=== PATIENT | female | born 1945 | race Caucasian/White ===

== ENCOUNTER 2019-02-15 10:26 | Inpatient (IN) | payer MEDICARE, MEDICAID ==
[~2019-02-15] VITALS: Ht 160 cm; Wt 111.6 kg
--- NOTE | 2019-02-15 10:40 | NUR ---
ED Nurse Note: pt brought in to ER by ambulance from [facility] due to coughing and congestion for last 3 days. pt aao x4 and chairbound at this time. skin clean and intact. pt is not coughing since she arrived to ER but per pt she has been coughing with white and thick phlem. no SOB or wheezing noted at this time. 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
--- NOTE | 2019-02-15 10:50 | NUR ---
ED Nurse Note: x-ray at bedside.
[2019-02-15 11:02] LABS: EOSINOPHILS % (AUTO) 0.1 % (0.0-3.0); HEMATOCRIT 32.6 % (37.0-47.0); HEMOGLOBIN 11.1 G/DL (12.0-16.0); LYMPHOCYTES % (AUTO) 23.9 % (20.0-45.0); MEAN CORPUSCULAR VOLUME 83 FL (80-99); MONOCYTES % (AUTO) 6.4 % (1.0-10.0); NEUTROPHILS % (AUTO) 68.6 % (45.0-75.0); PLATELET COUNT 238 K/UL (150-450); RED BLOOD COUNT 3.93 M/UL (4.20-5.40); RED CELL DISTRIBUTION WIDTH 13.5 % (11.6-14.8); WHITE BLOOD COUNT 7.4 K/UL (4.8-10.8)
[2019-02-15 11:11] VITALS: BP 154/76
[2019-02-15 11:24] LABS: ANION GAP 6 mmol/L (5-15); BLOOD UREA NITROGEN 15 mg/dL (7-18); CARBON DIOXIDE 30 MMOL/L (21-32); CHLORIDE 99 MMOL/L (98-107); CREATININE 1.1 MG/DL (0.55-1.30); POTASSIUM 4.4 MMOL/L (3.5-5.1); SODIUM 134 MMOL/L (136-145)
--- NOTE | 2019-02-15 11:38 | Diagnostic Imaging Report ---
Indication: Cough Comparison: None A single view chest radiograph was obtained. Findings: Cardiomediastinal appearance is within normal limits for age. The lungs are clear. Pulmonary vascularity is appropriate. The diaphragmatic contour is smooth and costophrenic angles are sharp. No pleural effusions are identified. The bones are osteopenic. Impression: No acute findings
[2019-02-15 11:45] LABS: ALANINE AMINOTRANSFERASE 26 U/L (12-78); ALBUMIN 3.1 G/DL (3.4-5.0); ALBUMIN/GLOBULIN RATIO 0.7 (1.0-2.7); ALKALINE PHOSPHATASE 91 U/L (46-116); ASPARTATE AMINO TRANSFERASE 27 U/L (15-37); BILIRUBIN,TOTAL 0.7 MG/DL (0.2-1.0); CKMB 4.6 NG/ML (0.0-3.6)
[2019-02-15] MEDS ORDERED: Azithromycin 500 MG in D5W 275 ML IVPB ONE (11:45)
[2019-02-15] MEDS ORDERED: cefTRIAXone 1 GM in NS 55 ML IVPB ONE (11:45)
--- NOTE | 2019-02-15 12:14 | NUR ---
ED Nurse Note: Report given to BETHANIE Bustamante
--- NOTE | 2019-02-15 12:20 | NUR ---
ED Nurse Note: pt left unit with 1 technical staff assistant in stable condition.
[2019-02-15] MEDS ORDERED: RESTORIL30 MG ORAL (12:23)
[2019-02-15] MEDS ORDERED: FERROUS SULFAT325 M2 ORAL (12:23)
[2019-02-15] MEDS ORDERED: GLUCOPHAGE1000 MG ORAL (12:23)
[2019-02-15] MEDS ORDERED: ATIVAN1 MG ORAL (12:23)
[2019-02-15] MEDS ORDERED: NEURONTIN100 MG ORAL (12:23)
[2019-02-15] MEDS ORDERED: HUMULIN N100 UNIT/1 SUBQ (12:23)
[2019-02-15] MEDS ORDERED: GLUCAGON EMERGEN1 MG IJ (12:23)
[2019-02-15] MEDS ORDERED: CLONIDINE HCL0.1 MG PO (12:23)
[2019-02-15] MEDS ORDERED: LEXAPRO5 MG ORAL (12:23)
[2019-02-15] MEDS ORDERED: ACETAMINOPHEN500 M5 ORAL (12:23)
[2019-02-15] MEDS ORDERED: COZAAR100 MG ORAL (12:23)
[2019-02-15] MEDS ORDERED: NORVASC5 MG ORAL (12:23)
[2019-02-15 12:55] VITALS: BP 146/83
--- NOTE | 2019-02-15 12:55 | NUR ---
NURSE NOTES:ADMITTED FR. ER BY CASSANDRA,C/C OF COUGHING/CONGESTION FOR 3 DAYS,ADMITTING DX.PNEUMONIA,WHOCAME FR.[facility],ER REPORT GIVEN BY JASON KOVACS.PATIENT A/OX3-4,ROOM AIR,VERY PLEASANT,OBESE,SKIN INTACT.ABLE TO AMBULATE.BREATH SOUNDS CLEAR,NO COUGHING OR CONGESTION NOTED.NO C/O PAIN.PLAN OF CARE DISCUSSED AND UNDERSTOOD..
[2019-02-15 13:00] LABS: APPEARANCE,URINE CLEAR; BILIRUBIN, URINE NEGATIVE (NEGATIVE); COLOR,URINE PALE YELLOW; GLUCOSE, URINE (UA) 1+ (NEGATIVE); KETONES,URINE NEGATIVE (NEGATIVE); LEUKOCYTE ESTERASE ,URINE 1+ (NEGATIVE); NITRITE,URINE NEGATIVE (NEGATIVE); PH,URINE 7 (4.5-8.0); PROTEIN,URINE 1+ (NEGATIVE); UROBILINOGEN,URINE NORMAL MG/DL (0.0-1.0)
--- NOTE | 2019-02-15 14:48 | Emergency Room Report ---
History of Present Illness General Chief Complaint: Upper Respiratory Illness Source: Patient, Medical Record, EMS, PMD Present Illness HPI Patient presents emergency department today complaint cough congestion fever. Patient is slightly short of breath as well. Patient is from a longterm. Symptoms noted to be severe. Patient primary care physician is Dr. Garett Gomez. He was concerned that patient might have pneumonia and sent patient here for further evaluation. No other modifying factors. No other associated signs and symptoms. No other complaints were noted. Allergies: Coded Allergies: AMOXICILLIN (Verified Allergy, Unknown, 02/14/10) PENICILLINS (Verified Allergy, Unknown, 02/14/10) Uncoded Allergies: EGGS (Allergy, Unknown, 02/14/10) Patient History Past Medical History: DM, HTN Past Surgical History: none Pertinent Family History: none Social History: Denies: smoking, alcohol use, drug use Now: No Reviewed Nursing Documentation: PMH: Agreed; PSxH: Agreed Nursing Documentation-PMH Past Medical History: No History, Except For Hx Hypertension: Yes Hx Diabetes: Yes Review of Systems All Other Systems: negative except mentioned in HPI Physical Exam Vital Signs Date Time Temp Pulse Resp B/P (MAP) Pulse Ox O2 Delivery O2 Flow Rate FiO2 02/15/19 10:26 98.8 68 18 155/100 (118) 96 Room Air Sp02 EP Interpretation: reviewed, normal General Appearance: normal inspection, well appearing, no apparent distress, alert Head: atraumatic Eyes: bilateral eye normal inspection ENT: normal ENT inspection, hearing grossly normal, normal voice Neck: normal inspection, full range of motion, supple, no bony tend Respiratory: decreased breath sounds, accessory muscle use, crackles - Bases Cardiovascular #1: regular rate, rhythm, no edema Gastrointestinal: normal inspection, normal bowel sounds, non tender, soft, no guarding, no hernia Genitourinary: no CVA tenderness Musculoskeletal: normal inspection, back normal, normal range of motion Neurologic: normal inspection, alert, responsive, speech normal Psychiatric: judgement/insight normal, depressed affect, anxious Skin: normal inspection, normal color, no rash Medical Decision Making Diagnostic Impression: Primary Impression: Pneumonia Additional Impression: Respiratory distress ER Course Patient presents emergency department today complaining of shortness of breath. Differential diagnoses include acute pneumonia, CHF, acute coronary syndrome, pneumothorax, asthma, COPD flare, just to name a few. Given the severity of the patient's presentation I felt this is a highly complex patient. This patient required extensive workup. Patient laboratory work-up was not impressive. Patient however short of breath. Chest x-ray was equivocal and did not show definite pneumonia but given the severity patient's cough congestion fevers at home shortness of breath and immunocompromised status as diabetic felt the patient require admission for further evaluation. Case was discussed in detail with Dr. Garett Gomez. Who knows the patient well. He felt the patient should be admitted for further management. Patient will be admitted to service for further treatment. Labs Test 02/15/19 10:47 02/15/19 12:15 White Blood Count 7.4 K/UL (4.8-10.8) Red Blood Count 3.93 M/UL (4.20-5.40) Hemoglobin 11.1 G/DL (12.0-16.0) Hematocrit 32.6 % (37.0-47.0) Mean Corpuscular Volume 83 FL (80-99) Mean Corpuscular Hemoglobin 28.3 PG (27.0-31.0) Mean Corpuscular Hemoglobin Concent 34.1 G/DL (32.0-36.0) Red Cell Distribution Width 13.5 % (11.6-14.8) Platelet Count 238 K/UL (150-450) Mean Platelet Volume 6.8 FL (6.5-10.1) Neutrophils (%) (Auto) 68.6 % (45.0-75.0) Lymphocytes (%) (Auto) 23.9 % (20.0-45.0) Monocytes (%) (Auto) 6.4 % (1.0-10.0) Eosinophils (%) (Auto) 0.1 % (0.0-3.0) Basophils (%) (Auto) 1.0 % (0.0-2.0) Sodium Level 134 MMOL/L (136-145) Potassium Level 4.4 MMOL/L (3.5-5.1) Chloride Level 99 MMOL/L (98-107) Carbon Dioxide Level 30 MMOL/L (21-32) Anion Gap 6 mmol/L (5-15) Blood Urea Nitrogen 15 mg/dL (7-18) Creatinine 1.1 MG/DL (0.55-1.30) Estimat Glomerular Filtration Rate mL/min (>60) Glucose Level 130 MG/DL (74-106) Calcium Level 9.0 MG/DL (8.5-10.1) Total Bilirubin 0.7 MG/DL (0.2-1.0) Aspartate Amino Transf (AST/SGOT) 27 U/L (15-37) Alanine Aminotransferase (ALT/SGPT) 26 U/L (12-78) Alkaline Phosphatase 91 U/L (46-116) Creatine Kinase MB 4.6 NG/ML (0.0-3.6) Troponin I 0.000 ng/mL (0.000-0.056) Pro-B-Type Natriuretic Peptide 339 pg/mL (0-125) Total Protein 7.5 G/DL (6.4-8.2) Albumin 3.1 G/DL (3.4-5.0) Globulin 4.4 g/dL Albumin/Globulin Ratio 0.7 (1.0-2.7) Lipase 148 U/L (73-393) Urine Color Pale yellow Urine Appearance Clear Urine pH 7 (4.5-8.0) Urine Specific [place] 1.005 (1.005-1.035) Urine Protein 1+ (NEGATIVE) Urine Glucose (UA) 1+ (NEGATIVE) Urine Ketones Negative (NEGATIVE) Urine Blood Negative (NEGATIVE) Urine Nitrite Negative (NEGATIVE) Urine Bilirubin Negative (NEGATIVE) Urine Urobilinogen Normal MG/DL (0.0-1.0) Urine Leukocyte Esterase 1+ (NEGATIVE) Urine RBC 0 /HPF (0 - 2) Urine WBC 0-2 /HPF (0 - 2) Urine Squamous Epithelial Cells Few /LPF (NONE/OCC) Urine Bacteria Occasional /HPF (NONE) EKG Diagnostic Results Rate: normal Rhythm: NSR ST Segments: no acute changes Rhythm Strip Diag. Results EP Interpretation: yes Rate: 63 Rhythm: NSR, no PVC's, no ectopy Chest X-Ray Diagnostic Results Chest X-Ray Diagnostic Results : Chest X-Ray Ordered: Yes # of Views/Limited/Complete: 1 View Indication: Shortness of Breath EP Interpretation: No Impression: No acute disease Last Vital Signs Date Time Temp Pulse Resp B/P (MAP) Pulse Ox O2 Delivery O2 Flow Rate FiO2 02/15/19 12:52 Room Air 02/15/19 12:20 98.2 71 18 137/82 98 Status: improved Disposition: ADMITTED INPATIENT Condition: Serious Referrals: Hadadz,Ali MD (PCP) Arash Aceves MD Feb 15, 2019 14:48
[2019-02-15] MEDS ORDERED: Milk of Magnesia 30ml Ud ORAL PRN (15:00)
[2019-02-15 16:12] VITALS: BP 142/77
[2019-02-15] MEDS: NovoLOG Insulin Flexpen SUBQ SCH ×2 (16:48→20:55)
[2019-02-15] MEDS: metFORMIN 500mg tab ORAL SCH (17:46)
[2019-02-15] MEDS: Flonase Nasal Inhaler 16gm NASAL SCH (17:46)
[2019-02-15] MEDS: Gabapentin 300 MG/6 ML Soln NG SCH (17:48)
[2019-02-15 18:39] LABS: BASOPHILS % (AUTO) 0.9 % (0.0-2.0); EOSINOPHILS % (AUTO) 0.3 % (0.0-3.0); HEMATOCRIT 29.5 % (37.0-47.0); HEMOGLOBIN 10.1 G/DL (12.0-16.0); LYMPHOCYTES % (AUTO) 26.3 % (20.0-45.0); MEAN CORPUSCULAR VOLUME 80 FL (80-99); MONOCYTES % (AUTO) 8.6 % (1.0-10.0); NEUTROPHILS % (AUTO) 63.8 % (45.0-75.0); PLATELET COUNT 236 K/UL (150-450); RED BLOOD COUNT 3.67 M/UL (4.20-5.40); RED CELL DISTRIBUTION WIDTH 12.5 % (11.6-14.8); WHITE BLOOD COUNT 6.3 K/UL (4.8-10.8)
[2019-02-15 18:53] LABS: ALANINE AMINOTRANSFERASE 21 U/L (12-78); ALBUMIN 3.2 G/DL (3.4-5.0); ALBUMIN/GLOBULIN RATIO 0.8 (1.0-2.7); ALKALINE PHOSPHATASE 89 U/L (46-116); ANION GAP 6 mmol/L (5-15); ASPARTATE AMINO TRANSFERASE 15 U/L (15-37); BILIRUBIN,TOTAL 0.5 MG/DL (0.2-1.0); BLOOD UREA NITROGEN 19 mg/dL (7-18); CALCIUM 9.3 MG/DL (8.5-10.1); CARBON DIOXIDE 30 MMOL/L (21-32); CHLORIDE 101 MMOL/L (98-107); CREATININE 1.3 MG/DL (0.55-1.30); SODIUM 137 MMOL/L (136-145)
--- NOTE | 2019-02-15 19:10 | NUR ---
HAND-OFF: Report given to CHRISTOPHER RN.PATIENT STABLE.
--- NOTE | 2019-02-15 19:35 | NUR ---
NURSE NOTES: Received report from BETHANIE Bustamante. Patient A&Ox4 with episodes of forgetfulness. On room air, no signs of distress or labored breathing. IV intact, patent, and saline locked. Side rails up x2. Bed in lowest position with call light in reach. Will continue with plan of care.
[2019-02-15 20:00] VITALS: BP 159/83
[2019-02-15] MEDS: LORazepam 1mg tab ORAL SCH (20:54)
--- NOTE | 2019-02-15 23:00 | Consultation ---
DATE OF CONSULTATION: 02/15/2019 INFECTIOUS DISEASE CONSULTATION CONSULTING PHYSICIAN: Seth Waggoner M.D. PRIMARY ATTENDING PHYSICIAN: Garett Mccloud M.D. REASON FOR CONSULTATION: Bronchitis. HISTORY OF PRESENT ILLNESS: This is a 73-year-old white female admitted today from a [facility]. The patient has history of productive cough for a month. Denies any fever, chills, or any other symptoms. PAST MEDICAL HISTORY: Significant for diabetes mellitus type 2, anemia, hypothyroidism, lack of coordination, and obesity. The patient walks with walker. ALLERGIES: Allergic to amoxicillin, eggs, penicillin, but received ceftriaxone in the ER without any complication. SOCIAL HISTORY: assisted resident has three other roommates in [facility]. Denies alcohol, drug abuse, or smoking. She is a and has one child. REVIEW OF SYSTEMS: She has stuffy nose. No significant sore throat. Productive cough. No nausea. No vomiting. She has good appetite. No problem passing urine. PHYSICAL EXAMINATION: VITAL SIGNS: Temperature 98.2, blood pressure 137/82, pulse 79. GENERAL APPEARANCE: No acute distress. Seems to be obese. HEAD AND NECK: [place] conjunctivae. HEART: Normal rate. LUNGS: Clear. ABDOMEN: Soft and obese. EXTREMITIES: Mild edema of lower extremities bilaterally. NEUROLOGIC: Awake, alert, oriented x3. LABORATORY AND DIAGNOSTIC DATA: Sodium 134, potassium 4.4, chloride 99, carbon dioxide 30, BUN 15, creatinine 1.1, glucose 113, albumin is 2.1. WBC 7.4, hemoglobin 11.1, hematocrit 32.6, platelet is 238,000. Troponin is zero. Chest x-ray showed no active disease. IMPRESSION: Bronchitis, may have a component of seasonal allergies. The patient is diabetic. She has obesity and hypothyroidism. RECOMMENDATIONS: We will treat with a short course of Levaquin. We will follow up the clinical course. At the end of my exam, I thank Dr. Mccloud for involving me in the care of this patient. Seth Waggoner M.D. DR: /[place] JOB#: [id number] CC: DEVORA
[2019-02-16] VITALS (7 sets, daily range): BP systolic 123–162; BP diastolic 67–81
[2019-02-16] MEDS: HYDROcodone/Acetamin 5/325 tab ORAL PRN ×3 (02:21→14:32)
[2019-02-16] MEDS: NovoLOG Insulin Flexpen SUBQ SCH ×4 (06:46→21:13)
--- NOTE | 2019-02-16 07:30 | NUR ---
NURSE NOTES: Received pt from RN CHRISTOPHER. Pt is forget full and orient x4. pt is in RA, No SOB or acute respiratory distress noted. Pt has intact iv access R wrist 20g SL. all needs attended, bed is locked and is in the lowest position. call light within easy reach. will continue to monitor.
--- NOTE | 2019-02-16 07:30 | History and Physical Report ---
DATE OF ADMISSION: 02/15/2019 HISTORY OF PRESENT ILLNESS: The patient comes in because of cough, fever, was admitted for pneumonia. The patient has also had paranoid schizophrenia, obesity, diabetes. Denies nausea, vomiting, or diarrhea. No fever. No dementia. Does have chills. Denies shortness of breath. Does have nonproductive cough. PAST MEDICAL HISTORY: Paranoid schizophrenia, mood disorder, NIDDM, obesity, hypertension, and insomnia. ALLERGIES: Penicillin. PAST SURGICAL HISTORY: None. MEDICATIONS: Iron, Lexapro, clonidine, amlodipine, insulin, lorazepam, losartan, and metformin. FAMILY HISTORY: Does have history of diabetes. SOCIAL HISTORY: Denies smoking, alcohol, or illicit drugs. Comes from a retirement. REVIEW OF SYSTEMS: HEENT: Denies headaches. RESPIRATORY: Denies shortness of breath. Does have cough. Denies wheezing. CARDIOVASCULAR: No chest pain. GASTROINTESTINAL: Denies nausea, vomiting, or diarrhea. EXTREMITIES: Denies pain in lower extremities. NEUROLOGIC: Denies change in speech pattern PHYSICAL EXAMINATION: VITAL SIGNS: Temperature 98.8, pulse is 68, and blood pressure 154/62. HEENT: PERRLA. NECK: Supple. CHEST: Clear to auscultation. CARDIOVASCULAR: Regular rate and rhythm. No murmurs or extra sounds. GASTROINTESTINAL: Soft, nontender, and nondistended. No organomegaly. EXTREMITIES: No edema. Moves all four extremities. NEUROLOGIC: Sensory intact to light touch. The patient is able to move all four extremities. LABORATORY DATA: WBC , hemoglobin , platelets 238,000. Sodium 134, potassium 4.4, BUN of 15, creatinine 1.1, and glucose of 130. ASSESSMENT AND PLAN: Pneumonia. I have asked Dr. Seth Waggoner to see the patient for antibiotic, Dr. Mendez for hyponatremia, rule out dehydration. Garett Mccloud M.D. DR: DOMINIQUE JOB#: [id number] CC:
--- NOTE | 2019-02-16 07:49 | NUR ---
HAND-OFF: Report given to BETHANIE Suazo.
[2019-02-16] MEDS: Flonase Nasal Inhaler 16gm NASAL SCH ×2 (08:26→17:22)
[2019-02-16] MEDS: metFORMIN 500mg tab ORAL SCH ×2 (08:26→17:22)
[2019-02-16] MEDS: LORazepam 1mg tab ORAL SCH (08:27)
[2019-02-16] MEDS: Gabapentin 300 MG/6 ML Soln NG SCH ×3 (08:27→17:22)
[2019-02-16] MEDS: Losartan 50mg tab ORAL SCH (08:28)
--- NOTE | 2019-02-16 09:37 | NUR ---
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 RESPIRATORY DISTRESS VS: BP 155/100, P 68, T 98.7, RR 18, SpO2 96 RBC 3.93, H&H 11./32.6, Na 134 IS:AZITHROMYCIN 275ml IVPB CEFTRIAXONE 55ml IVPB ADMITTED TO MED/SURG DCP: RETURN TO [facility]
--- NOTE | 2019-02-16 11:37 | NUR ---
NURSE NOTES: Dr aSm LAFLEUR and Dr DUNCAN are aware about blood culture gram pos cocci in cluster. no new order to RN. will continue to monitor.
--- NOTE | 2019-02-16 13:41 | Infectious Diseases Prog Note ---
Assessment/Plan Assessment/Plan IMPRESSION: Bronchitis, Bacteremia, patient dosen't look septic seasonal allergies. The DM. obesity hypothyroidism. RECOMMENDATIONS: Continue Levaquin. will follow up blood cultures Subjective ROS Limited/Unobtainable: No Constitutional: Reports: no symptoms Respiratory: Reports: productive cough Cardiovascular: Reports: no symptoms Gastrointestinal/Abdominal: Reports: no symptoms Genitourinary: Reports: no symptoms Allergies: Coded Allergies: AMOXICILLIN (Verified Allergy, Unknown, 02/14/10) PENICILLINS (Verified Allergy, Unknown, 02/14/10) Uncoded Allergies: EGGS (Allergy, Unknown, 02/14/10) Objective Vital Signs Last 24 Hour Vital Signs Date Time Temp Pulse Resp B/P (MAP) Pulse Ox O2 Delivery O2 Flow Rate FiO2 02/16/19 11:53 98.4 81 18 149/81 (103) 96 02/16/19 09:00 Room Air 02/16/19 08:59 98.6 02/16/19 08:28 157/74 02/16/19 08:27 75 157/74 02/16/19 08:00 98.6 75 17 157/74 (101) 96 02/16/19 04:00 98.0 91 18 123/67 (85) 98 02/16/19 00:00 97.7 72 18 151/74 (99) 96 02/15/19 21:00 Room Air 02/15/19 20:00 98.6 69 18 159/83 (108) 98 02/15/19 16:12 98.6 71 142/77 (98) 98 Height (Feet): 5 Height (Inches): 3.00 Weight (Pounds): 250 General Appearance: other - obese HEENT: mucous membranes moist Respiratory/Chest: lungs clear Cardiovascular: normal rate Abdomen: soft, non tender Neurologic/Psychiatric: alert, oriented x 3, responsive Microbiology Date/Time Source Procedure Growth Status 02/15/19 10:47 Blood Blood Culture - Preliminary Resulted 02/15/19 10:30 Blood Blood Culture - Preliminary Resulted 02/15/19 11:40 Rectum Received Laboratory Tests Test 02/15/19 18:15 White Blood Count 6.3 K/UL (4.8-10.8) Red Blood Count 3.67 M/UL (4.20-5.40) L Hemoglobin 10.1 G/DL (12.0-16.0) L Hematocrit 29.5 % (37.0-47.0) L Mean Corpuscular Volume 80 FL (80-99) Mean Corpuscular Hemoglobin 27.6 PG (27.0-31.0) Mean Corpuscular Hemoglobin Concent 34.3 G/DL (32.0-36.0) Red Cell Distribution Width 12.5 % (11.6-14.8) Platelet Count 236 K/UL (150-450) Mean Platelet Volume 5.6 FL (6.5-10.1) L Neutrophils (%) (Auto) 63.8 % (45.0-75.0) Lymphocytes (%) (Auto) 26.3 % (20.0-45.0) Monocytes (%) (Auto) 8.6 % (1.0-10.0) Eosinophils (%) (Auto) 0.3 % (0.0-3.0) Basophils (%) (Auto) 0.9 % (0.0-2.0) Sodium Level 137 MMOL/L (136-145) Potassium Level 4.0 MMOL/L (3.5-5.1) Chloride Level 101 MMOL/L (98-107) Carbon Dioxide Level 30 MMOL/L (21-32) Anion Gap 6 mmol/L (5-15) Blood Urea Nitrogen 19 mg/dL (7-18) H Creatinine 1.3 MG/DL (0.55-1.30) Estimat Glomerular Filtration Rate mL/min (>60) Glucose Level 220 MG/DL (74-106) H Calcium Level 9.3 MG/DL (8.5-10.1) Total Bilirubin 0.5 MG/DL (0.2-1.0) Aspartate Amino Transf (AST/SGOT) 15 U/L (15-37) Alanine Aminotransferase (ALT/SGPT) 21 U/L (12-78) Alkaline Phosphatase 89 U/L (46-116) Total Protein 7.1 G/DL (6.4-8.2) Albumin 3.2 G/DL (3.4-5.0) L Globulin 3.9 g/dL Albumin/Globulin Ratio 0.8 (1.0-2.7) L Current Medications Medications (Trade) Dose Ordered Sig/Latasha Route PRN Reason Start Time Stop Time Status Last Admin Dose Admin Acetaminophen/ Hydrocodone Bitart (Ash 5/325) 1 tab Q6H PRN ORAL Severe Pain (Pain Scale 7-10) 02/15/19 15:00 02/22/19 14:59 02/16/19 08:29 Amlodipine Besylate (Norvasc) 5 mg DAILY ORAL 02/16/19 09:00 03/18/19 08:59 02/16/19 08:27 Clonidine HCl (Catapres Tab) 0.1 mg Q8H PRN ORAL For High Blood Pressure 02/15/19 15:00 03/17/19 14:59 Dextrose (Dextrose 50%) 25 ml Q30M PRN IV Hypoglycemia 02/15/19 14:30 03/17/19 14:29 Dextrose (Dextrose 50%) 50 ml Q30M PRN IV Hypoglycemia 02/15/19 14:30 03/17/19 14:29 Escitalopram Oxalate (Lexapro) 5 mg DAILY ORAL 02/16/19 09:00 03/18/19 08:59 02/16/19 08:28 Ferrous Sulfate (Feosol) 325 mg DAILY ORAL 02/16/19 09:00 03/18/19 08:59 02/16/19 08:27 Fluticasone Propionate (Flonase) 1 spray TWICE A DAY NASAL 02/15/19 18:00 03/17/19 17:59 02/16/19 08:26 Gabapentin (Neurontin) 300 mg TID NG 02/15/19 18:00 03/17/19 17:59 02/16/19 12:03 Insulin Aspart (NovoLOG) BEFORE MEALS AND HS SUBQ 02/15/19 16:30 03/17/19 16:29 02/16/19 12:04 Levofloxacin (Levaquin) 750 mg DAILY ORAL 02/17/19 09:00 02/24/19 08:59 Lorazepam (Ativan) 1 mg Q12HR ORAL 02/15/19 21:00 02/22/19 20:59 02/16/19 08:27 Losartan Potassium (Cozaar) 50 mg DAILY ORAL 02/16/19 09:00 03/18/19 08:59 02/16/19 08:28 Magnesium Hydroxide (Mom) 30 ml HSPRN PRN ORAL Constipation 02/15/19 15:00 03/17/19 14:59 Metformin HCl (Glucophage) 500 mg BID ORAL 02/15/19 18:00 03/17/19 17:59 02/16/19 08:26 Risperidone (RisperDAL) 2 mg DAILY ORAL 02/16/19 09:00 03/18/19 08:59 02/16/19 08:28 Risperidone (RisperDAL) 3 mg QHS ORAL 02/15/19 21:00 03/17/19 20:59 02/15/19 20:54 Temazepam (Restoril) 15 mg HSPRN PRN ORAL Insomnia 02/15/19 23:30 02/22/19 23:29 02/15/19 23:56 Seth Waggoner MD Feb 16, 2019 13:41
--- NOTE | 2019-02-16 15:02 | Cardiology Report ---
APPROVED REPORT EKG Measurement Heart [id number] Normal sinus rhythm Left axis deviation Incomplete right bundle branch block Minimal voltage criteria for LVH, may be normal variant Abnormal ECG
[2019-02-16] MEDS ORDERED: LORazepam 1mg tab ORAL PRN (16:28)
[2019-02-16 19:09] LABS: HEMATOCRIT 31.4 % (37.0-47.0); HEMOGLOBIN 10.7 G/DL (12.0-16.0); MEAN CORPUSCULAR VOLUME 82 FL (80-99); PLATELET COUNT 251 K/UL (150-450); RED BLOOD COUNT 3.84 M/UL (4.20-5.40); RED CELL DISTRIBUTION WIDTH 13.2 % (11.6-14.8); WHITE BLOOD COUNT 8.9 K/UL (4.8-10.8)
[2019-02-16 19:14] LABS: INR 0.9 (0.9-1.1)
[2019-02-16 19:23] LABS: FERRITIN 58 NG/ML (8-388); LACTATE DEHYDROGENASE 173 U/L (81-234)
--- NOTE | 2019-02-16 19:30 | NUR ---
HAND-OFF: Report given to BETHANIE WHITE.
[2019-02-16 19:37] LABS: % IRON SATURATION 14 % (15-50); IRON 35 ug/dL (50-175); TOTAL IRON BINDING CAPACITY 250 ug/dL (250-450)
--- NOTE | 2019-02-16 20:00 | NUR ---
NURSE NOTES: Received report from BETHANIE Suazo. Patient sleeping. On room air, no signs of distress or labored breathing. IV intact, patent and saline locked. Bed in lowest position with call light in reach. Will continue with plan of carwe.
--- NOTE | 2019-02-16 22:09 | General Progress Note ---
Assessment/Plan Problem List: (1) Respiratory distress ICD Codes: R06.03 - Acute respiratory distress SNOMED: 236548787 (2) Pneumonia ICD Codes: J18.9 - Pneumonia, unspecified organism SNOMED: 850031199 Status: progressing Assessment/Plan: pna improving resp insuff afebrile Subjective ROS Limited/Unobtainable: Yes Allergies: Coded Allergies: AMOXICILLIN (Verified Allergy, Unknown, 02/14/10) PENICILLINS (Verified Allergy, Unknown, 02/14/10) Uncoded Allergies: EGGS (Allergy, Unknown, 02/14/10) Objective Last 24 Hour Vital Signs Date Time Temp Pulse Resp B/P (MAP) Pulse Ox O2 Delivery O2 Flow Rate FiO2 02/16/19 16:01 97.7 77 18 162/76 (104) 96 02/16/19 15:02 98.4 02/16/19 11:53 98.4 81 18 149/81 (103) 96 02/16/19 09:00 Room Air 02/16/19 08:28 157/74 02/16/19 08:27 75 157/74 02/16/19 08:00 98.6 75 17 157/74 (101) 96 02/16/19 04:00 98.0 91 18 123/67 (85) 98 02/16/19 00:00 97.7 72 18 151/74 (99) 96 Intake and Output 02/15/19 02/16/19 19:00 07:00 Intake Total 715 ml Balance 715 ml Intake Oral 660 ml IV Total 55 ml # Voids 4 4 Laboratory Tests 02/16/19 18:30: White Blood Count 8.9, Red Blood Count 3.84L, Hemoglobin 10.7L, Hematocrit 31.4L , Mean Corpuscular Volume 82, Mean Corpuscular Hemoglobin 27.9, Mean Corpuscular Hemoglobin Concent 34.1, Red Cell Distribution Width 13.2, Platelet Count 251, Mean Platelet Volume 6.2L, Neutrophils (%) (Auto) , Lymphocytes (%) ( Auto) , Monocytes (%) (Auto) , Eosinophils (%) (Auto) , Basophils (%) (Auto) , Differential Total Cells Counted 100, Neutrophils % (Manual) 64, Lymphocytes % ( Manual) 31, Monocytes % (Manual) 4, Eosinophils % (Manual) 1, Basophils % ( Manual) 0, Band Neutrophils 0, Platelet Estimate Adequate, Platelet Morphology Normal, Red Blood Cell Morphology Normal, Reticulocyte Count 1.2, Prothrombin Time 10.0, Prothromb Time International Ratio 0.9, Iron Level 35L, Total Iron Binding Capacity 250, Percent Iron Saturation 14L, Unsaturated Iron Binding 215 , Ferritin 58, Lactate Dehydrogenase 173, Carcinoembryonic Antigen [Pending], Vitamin B12 Level 848, Folate 7.4L, Thyroid Stimulating Hormone (TSH) 3.677 Height (Feet): 5 Height (Inches): 3.00 Weight (Pounds): 250 Neck: supple Cardiovascular: normal rate Respiratory/Chest: lungs clear Abdomen: soft Garett Mccloud MD Feb 16, 2019 22:09
--- NOTE | 2019-02-16 22:45 | Consultation ---
DATE OF CONSULTATION: 02/15/2019 CONSULTING PHYSICIAN: Analia Shaffer M.D. HISTORY OF PRESENT ILLNESS: The patient is a 73-year-old female with a history of multiple medical problems including paranoid schizophrenia, depression, diabetes mellitus, hypertension, insomnia who has been admitted to the hospital for medical stabilization. The patient has history of schizophrenia. The patient has history of anxiety. PAST PSYCHIATRIC HISTORY: Paranoid schizophrenia, has been on Lexapro and lorazepam in the past. PAST MEDICAL HISTORY: Includes diabetes mellitus, obesity, hypertension. ALLERGIES: Penicillin. SUBSTANCE ABUSE HISTORY: No history of illicit drug use or alcohol. MENTAL STATUS EXAMINATION: The patient is alert, however very forgetful. The patient is alert and oriented times self and place. When asked about the date, the patient is looking at the board. Mood is anxious and depressed. Affect is constricted, congruent with mood. Thought process is circumstantial. Thought content, no suicidal or homicidal ideation. Memory is impaired. Insight and judgment is fair. ASSESSMENT: [place] I Schizophrenia, chronic paranoid type. Anxiety disorder. [place] II Deferred. [place] III As above. [place] IV Low. [place] V 20. PLAN: The patient's Lexapro will be increased to 10 mg in the morning. Discontinue the risperidone in the morning. Continue the temazepam. Continue the lorazepam 1 mg every 4 hours p.r.n. Provide the patient with reality orientation and supportive therapy. Analia Shaffer M.D. DR: ODELL JOB#: [id number] CC:
[2019-02-17] VITALS (7 sets, daily range): BP systolic 123–167; BP diastolic 67–81
[2019-02-17 05:23] LABS: BASOPHILS % (AUTO) 0.6 % (0.0-2.0); EOSINOPHILS % (AUTO) 0.2 % (0.0-3.0); HEMATOCRIT 32.8 % (37.0-47.0); HEMOGLOBIN 11.1 G/DL (12.0-16.0); LYMPHOCYTES % (AUTO) 23.2 % (20.0-45.0); MEAN CORPUSCULAR VOLUME 83 FL (80-99); MONOCYTES % (AUTO) 7.7 % (1.0-10.0); NEUTROPHILS % (AUTO) 68.3 % (45.0-75.0); PLATELET COUNT 247 K/UL (150-450); RED BLOOD COUNT 3.94 M/UL (4.20-5.40); RED CELL DISTRIBUTION WIDTH 13.6 % (11.6-14.8); WHITE BLOOD COUNT 6.9 K/UL (4.8-10.8)
[2019-02-17] MEDS: NovoLOG Insulin Flexpen SUBQ SCH ×4 (06:00→20:38)
--- NOTE | 2019-02-17 07:19 | Consultation ---
History of Present Illness General Date patient seen: Feb 16, 2019 Chief Complaint: Upper Respiratory Illness Present Illness Allergies: Coded Allergies: AMOXICILLIN (Verified Allergy, Unknown, 02/14/10) PENICILLINS (Verified Allergy, Unknown, 02/14/10) Uncoded Allergies: EGGS (Allergy, Unknown, 02/14/10) Medication History Scheduled Acetaminophen (Acetaminophen), 650 MG ORAL Q4H, (Reported) Amlodipine Besylate (Norvasc), 5 MG ORAL DAILY, (Reported) Escitalopram Oxalate (Lexapro), 5 MG ORAL DAILY, (Reported) Gabapentin* (Neurontin*), 300 MG ORAL THREE TIMES A DAY, (Reported) Lorazepam* (Ativan*), 1 MG ORAL BEDTIME, (Reported) Losartan Potassium (Cozaar), 50 MG ORAL DAILY, (Reported) Metformin Hcl (Glucophage), 1,000 MG ORAL DAILY, (Reported) Temazepam (Restoril*), 30 MG ORAL BEDTIME, (Reported) Miscellaneous Medications Clonidine Hcl (Clonidine Hcl), 0.1 MG PO, (Reported) Ferrous Sulfate (Ferrous Sulfate), 325 MG ORAL, (Reported) Glucagon,Human Recombinant (Glucagon Emergency Kit), 1 MG IJ, (Reported) Nph, Human Insulin Isophane (Humulin N), 0 SUBQ, (Reported) Patient History Healthcare decision maker Resuscitation status Full Code Advanced Directive on File Physical Exam Last 24 Hour Vital Signs Date Time Temp Pulse Resp B/P (MAP) Pulse Ox O2 Delivery O2 Flow Rate FiO2 02/17/19 04:00 98.2 75 18 123/78 (93) 94 02/17/19 00:00 98.0 73 18 158/73 (101) 94 02/16/19 21:00 Room Air 02/16/19 20:00 97.9 71 20 154/77 (102) 97 02/16/19 16:01 97.7 77 18 162/76 (104) 96 02/16/19 15:02 98.4 02/16/19 11:53 98.4 81 18 149/81 (103) 96 02/16/19 09:00 Room Air 02/16/19 08:28 157/74 02/16/19 08:27 75 157/74 02/16/19 08:00 98.6 75 17 157/74 (101) 96 Intake and Output 02/16/19 02/17/19 19:00 07:00 Intake Total 2000 ml Balance 2000 ml Intake Oral 2000 ml # Voids 6 2 Laboratory Tests Test 02/16/19 18:30 02/17/19 05:12 White Blood Count 8.9 K/UL (4.8-10.8) 6.9 K/UL (4.8-10.8) Red Blood Count 3.84 M/UL (4.20-5.40) L 3.94 M/UL (4.20-5.40) L Hemoglobin 10.7 G/DL (12.0-16.0) L 11.1 G/DL (12.0-16.0) L Hematocrit 31.4 % (37.0-47.0) L 32.8 % (37.0-47.0) L Mean Corpuscular Volume 82 FL (80-99) 83 FL (80-99) Mean Corpuscular Hemoglobin 27.9 PG (27.0-31.0) 28.2 PG (27.0-31.0) Mean Corpuscular Hemoglobin Concent 34.1 G/DL (32.0-36.0) 33.8 G/DL (32.0-36.0) Red Cell Distribution Width 13.2 % (11.6-14.8) 13.6 % (11.6-14.8) Platelet Count 251 K/UL (150-450) 247 K/UL (150-450) Mean Platelet Volume 6.2 FL (6.5-10.1) L 6.5 FL (6.5-10.1) Neutrophils (%) (Auto) % (45.0-75.0) 68.3 % (45.0-75.0) Lymphocytes (%) (Auto) % (20.0-45.0) 23.2 % (20.0-45.0) Monocytes (%) (Auto) % (1.0-10.0) 7.7 % (1.0-10.0) Eosinophils (%) (Auto) % (0.0-3.0) 0.2 % (0.0-3.0) Basophils (%) (Auto) % (0.0-2.0) 0.6 % (0.0-2.0) Differential Total Cells Counted 100 Neutrophils % (Manual) 64 % (45-75) Lymphocytes % (Manual) 31 % (20-45) Monocytes % (Manual) 4 % (1-10) Eosinophils % (Manual) 1 % (0-3) Basophils % (Manual) 0 % (0-2) Band Neutrophils 0 % (0-8) Platelet Estimate Adequate Platelet Morphology Normal Red Blood Cell Morphology Normal Reticulocyte Count 1.2 % (0.5-2.0) Prothrombin Time 10.0 SEC (9.30-11.50) Prothromb Time International Ratio 0.9 (0.9-1.1) Iron Level 35 ug/dL (50-175) L Total Iron Binding Capacity 250 ug/dL (250-450) Percent Iron Saturation 14 % (15-50) L Unsaturated Iron Binding 215 ug/dL (112-346) Ferritin 58 NG/ML (8-388) Lactate Dehydrogenase 173 U/L (81-234) Carcinoembryonic Antigen Pending Vitamin B12 Level 848 PG/ML (193-986) Folate 7.4 NG/ML (8.6-58.9) L Thyroid Stimulating Hormone (TSH) 3.677 uiU/mL (0.358-3.740) Height (Feet): 5 Height (Inches): 3.00 Weight (Pounds): 246 Medications Current Medications Medications (Trade) Dose Ordered Sig/Latasha Route PRN Reason Start Time Stop Time Status Last Admin Dose Admin Acetaminophen/ Hydrocodone Bitart ([place] 5/325) 1 tab Q6H PRN ORAL Severe Pain (Pain Scale 7-10) 02/15/19 15:00 02/22/19 14:59 02/16/19 14:32 Amlodipine Besylate (Norvasc) 5 mg DAILY ORAL 02/16/19 09:00 03/18/19 08:59 02/16/19 08:27 Clonidine HCl (Catapres Tab) 0.1 mg Q8H PRN ORAL For High Blood Pressure 02/15/19 15:00 03/17/19 14:59 Dextrose (Dextrose 50%) 25 ml Q30M PRN IV Hypoglycemia 02/15/19 14:30 03/17/19 14:29 Dextrose (Dextrose 50%) 50 ml Q30M PRN IV Hypoglycemia 02/15/19 14:30 03/17/19 14:29 Escitalopram Oxalate (Lexapro) 10 mg DAILY ORAL 02/17/19 09:00 03/19/19 08:59 Ferrous Sulfate (Feosol) 325 mg DAILY ORAL 02/16/19 09:00 03/18/19 08:59 02/16/19 08:27 Fluticasone Propionate (Flonase) 1 spray TWICE A DAY NASAL 02/15/19 18:00 03/17/19 17:59 02/16/19 17:22 Folic Acid (Folate) 1 mg DAILY ORAL 02/17/19 09:00 03/19/19 08:59 Gabapentin (Neurontin) 300 mg TID NG 02/15/19 18:00 03/17/19 17:59 02/16/19 17:22 Insulin Aspart (NovoLOG) BEFORE MEALS AND HS SUBQ 02/15/19 16:30 03/17/19 16:29 02/17/19 06:00 Levofloxacin (Levaquin) 750 mg Q48H ORAL 02/17/19 09:00 02/24/19 08:59 Lorazepam (Ativan) 1 mg Q4H PRN ORAL anxiety 02/16/19 16:28 02/23/19 16:27 Losartan Potassium (Cozaar) 50 mg DAILY ORAL 02/16/19 09:00 03/18/19 08:59 02/16/19 08:28 Magnesium Hydroxide (Mom) 30 ml HSPRN PRN ORAL Constipation 02/15/19 15:00 03/17/19 14:59 Metformin HCl (Glucophage) 500 mg BID ORAL 02/15/19 18:00 03/17/19 17:59 02/16/19 17:22 Risperidone (RisperDAL) 2 mg DAILY ORAL 02/17/19 09:00 03/19/19 08:59 Risperidone (RisperDAL) 3 mg QHS ORAL 02/15/19 21:00 03/17/19 20:59 02/16/19 21:14 Temazepam (Restoril) 15 mg HSPRN PRN ORAL Insomnia 02/15/19 23:30 02/22/19 23:29 02/15/19 23:56 Assessment/Plan Assessment/Plan: HEMATOLOGY/ONCOLOGY CONSULTATION DATE OF CONSULT: 02/16/2019 REFERRING PHYSICIAN: Garett Mccloud REASON FOR CONSULT: Anemia HISTORY OF PRESENT ILLNESS: This is a 73-year-old white female admitted today from a [facility]. The patient has history of productive cough for a month. Denies any fever, chills, or any other symptoms. Review of cbc showed a low hgb of 11.1. Hematology services were consulted for the evaluation of anemia. PAST MEDICAL HISTORY: Significant for diabetes mellitus type 2, anemia, hypothyroidism, lack of coordination, and obesity. The patient walks with walker. PAST SURGICAL HISTORY: Unknown ALLERGIES: Allergic to amoxicillin, eggs, penicillin, but received ceftriaxone in the ER without any complication. SOCIAL HISTORY: group home resident has three other roommates in [facility]. Denies alcohol, drug abuse, or smoking. She is a and has one child. FAMILY HISTORY: Noncontributory REVIEW OF SYSTEMS: She has stuffy nose. No significant sore throat. Productive cough. No nausea. No vomiting. She has good appetite. No problem passing urine. OBJECTIVE PHYSICAL EXAMINATION: VITAL SIGNS: Have been reviewed GENERAL APPEARANCE: No acute distress. Seems to be obese. HEAD AND NECK: Reserve conjunctivae. HEART: Normal rate. LUNGS: Clear. ABDOMEN: Soft and obese. EXTREMITIES: Mild edema of lower extremities bilaterally. NEUROLOGIC: Awake, alert, oriented x3. LABORATORY DATA: 02/16: wbc 8.9 hgb 11.1 plt [id number] ASSESSMENT AND RECOMMENDATIONS # Anemia of chronic disease (or of iron deficiency) due to underlying chronic medical issues, multifactorial --> Anemia workup has been ordered, rule out gi bleed --> No evidence of hemolysis is noted, peripheral smear has been reviewed. --> Hgb goal >7. Transfuse prn. --> Epogen or iron at this time is not particularly indicated --> Medications have been reviewed --> low threshold for gi evaluation in case has occult + --> bone marrow biopsy is not indicated given the other more likely causes # Bronchitis, may have a component of seasonal allergies. --> ID is following, appreciate recs. # DM. # Obesity. # Hypothyroidism. The time note is entered does not necessarily reflects the time the patient was examined. Greatly appreciate consultation. Margarito Jamison MD Feb 17, 2019 07:19
--- NOTE | 2019-02-17 07:30 | NUR ---
NURSE NOTES: Received pt from RN CHRISTOPHER. Pt is forget full and orient x3. pt is in RA, No SOB or acute respiratory distress noted. Pt has intact iv access R wrist 20g SL. 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 no new order to RN. all needs attended, bed is locked and is in the lowest position. call light within easy reach. will continue to monitor.
--- NOTE | 2019-02-17 07:34 | NUR ---
HAND-OFF: Report given to BETHANIE Suazo.
[2019-02-17] MEDS: metFORMIN 500mg tab ORAL SCH ×2 (08:57→17:18)
[2019-02-17] MEDS: Losartan 50mg tab ORAL SCH (08:57)
[2019-02-17] MEDS: Gabapentin 300 MG/6 ML Soln NG SCH ×3 (08:57→17:17)
[2019-02-17] MEDS: Flonase Nasal Inhaler 16gm NASAL SCH ×2 (08:58→17:17)
[2019-02-17] MEDS: Levofloxacin 750mg tab ORAL SCH (08:58)
[2019-02-17] MEDS: HYDROcodone/Acetamin 5/325 tab ORAL PRN (08:59)
[2019-02-17] MEDS ORDERED: Levofloxacin 750mg tab ORAL SCH (09:00)
--- NOTE | 2019-02-17 11:15 | Infectious Diseases Prog Note ---
Assessment/Plan Assessment/Plan IMPRESSION: Bronchitis, Bacteremia, patient doesn't look septic seasonal allergies. The DM. obesity hypothyroidism. VRE carrier RECOMMENDATIONS: Continue Levaquin. will follow up blood cultures Case was D/W microbiology Subjective ROS Limited/Unobtainable: Yes Respiratory: Reports: no symptoms Cardiovascular: Reports: no symptoms Gastrointestinal/Abdominal: Reports: no symptoms Genitourinary: Reports: no symptoms Neurologic: Reports: confusion Allergies: Coded Allergies: AMOXICILLIN (Verified Allergy, Unknown, 02/14/10) PENICILLINS (Verified Allergy, Unknown, 02/14/10) Uncoded Allergies: EGGS (Allergy, Unknown, 02/14/10) Objective Vital Signs Last 24 Hour Vital Signs Date Time Temp Pulse Resp B/P (MAP) Pulse Ox O2 Delivery O2 Flow Rate FiO2 02/17/19 09:29 97.9 02/17/19 09:00 Room Air 02/17/19 08:58 72 136/73 02/17/19 08:57 136/73 02/17/19 08:00 97.9 72 20 136/73 (94) 96 02/17/19 04:00 98.2 75 18 123/78 (93) 94 02/17/19 00:00 98.0 73 18 158/73 (101) 94 02/16/19 21:00 Room Air 02/16/19 20:00 97.9 71 20 154/77 (102) 97 02/16/19 16:01 97.7 77 18 162/76 (104) 96 02/16/19 11:53 98.4 81 18 149/81 (103) 96 Height (Feet): 5 Height (Inches): 3.00 Weight (Pounds): 246 General Appearance: no acute distress HEENT: mucous membranes moist Respiratory/Chest: lungs clear Cardiovascular: normal rate Abdomen: soft, non tender Extremities: no edema Neurologic/Psychiatric: alert, responsive, disoriented Microbiology Date/Time Source Procedure Growth Status 02/15/19 10:47 Blood Blood Culture - Preliminary Gram Positive Cocci Resulted 02/15/19 10:30 Blood Blood Culture - Preliminary Gram Positive Cocci Resulted 02/15/19 11:40 Nasal Nares Left MRSA Culture - Final NO METHICILLIN RESISTANT STAPH AUREUS... Complete 02/15/19 11:40 Rectum - Final NO CARBAPENEM-RESISTANT ENTEROBACTERI... Complete 02/15/19 11:40 Rectum VRE Culture - Final Enterococcus Faecalis - Vre Complete Laboratory Tests Test 02/16/19 18:30 02/17/19 05:12 White Blood Count 8.9 K/UL (4.8-10.8) 6.9 K/UL (4.8-10.8) Red Blood Count 3.84 M/UL (4.20-5.40) L 3.94 M/UL (4.20-5.40) L Hemoglobin 10.7 G/DL (12.0-16.0) L 11.1 G/DL (12.0-16.0) L Hematocrit 31.4 % (37.0-47.0) L 32.8 % (37.0-47.0) L Mean Corpuscular Volume 82 FL (80-99) 83 FL (80-99) Mean Corpuscular Hemoglobin 27.9 PG (27.0-31.0) 28.2 PG (27.0-31.0) Mean Corpuscular Hemoglobin Concent 34.1 G/DL (32.0-36.0) 33.8 G/DL (32.0-36.0) Red Cell Distribution Width 13.2 % (11.6-14.8) 13.6 % (11.6-14.8) Platelet Count 251 K/UL (150-450) 247 K/UL (150-450) Mean Platelet Volume 6.2 FL (6.5-10.1) L 6.5 FL (6.5-10.1) Neutrophils (%) (Auto) % (45.0-75.0) 68.3 % (45.0-75.0) Lymphocytes (%) (Auto) % (20.0-45.0) 23.2 % (20.0-45.0) Monocytes (%) (Auto) % (1.0-10.0) 7.7 % (1.0-10.0) Eosinophils (%) (Auto) % (0.0-3.0) 0.2 % (0.0-3.0) Basophils (%) (Auto) % (0.0-2.0) 0.6 % (0.0-2.0) Differential Total Cells Counted 100 Neutrophils % (Manual) 64 % (45-75) Lymphocytes % (Manual) 31 % (20-45) Monocytes % (Manual) 4 % (1-10) Eosinophils % (Manual) 1 % (0-3) Basophils % (Manual) 0 % (0-2) Band Neutrophils 0 % (0-8) Platelet Estimate Adequate Platelet Morphology Normal Red Blood Cell Morphology Normal Reticulocyte Count 1.2 % (0.5-2.0) Prothrombin Time 10.0 SEC (9.30-11.50) Prothromb Time International Ratio 0.9 (0.9-1.1) Iron Level 35 ug/dL (50-175) L Total Iron Binding Capacity 250 ug/dL (250-450) Percent Iron Saturation 14 % (15-50) L Unsaturated Iron Binding 215 ug/dL (112-346) Ferritin 58 NG/ML (8-388) Lactate Dehydrogenase 173 U/L (81-234) Carcinoembryonic Antigen 2.1 ng/mL (0.0-4.7) Vitamin B12 Level 848 PG/ML (193-986) Folate 7.4 NG/ML (8.6-58.9) L Thyroid Stimulating Hormone (TSH) 3.677 uiU/mL (0.358-3.740) Current Medications Medications (Trade) Dose Ordered Sig/Latasha Route PRN Reason Start Time Stop Time Status Last Admin Dose Admin Acetaminophen/ Hydrocodone Bitart ([place] 5/325) 1 tab Q6H PRN ORAL Severe Pain (Pain Scale 7-10) 02/15/19 15:00 02/22/19 14:59 02/17/19 08:59 Amlodipine Besylate (Norvasc) 5 mg DAILY ORAL 02/16/19 09:00 03/18/19 08:59 02/17/19 08:58 Clonidine HCl (Catapres Tab) 0.1 mg Q8H PRN ORAL For High Blood Pressure 02/15/19 15:00 03/17/19 14:59 Dextrose (Dextrose 50%) 25 ml Q30M PRN IV Hypoglycemia 02/15/19 14:30 03/17/19 14:29 Dextrose (Dextrose 50%) 50 ml Q30M PRN IV Hypoglycemia 02/15/19 14:30 03/17/19 14:29 Escitalopram Oxalate (Lexapro) 10 mg DAILY ORAL 02/17/19 09:00 03/19/19 08:59 02/17/19 08:57 Ferrous Sulfate (Feosol) 325 mg DAILY ORAL 02/16/19 09:00 03/18/19 08:59 02/17/19 08:57 Fluticasone Propionate (Flonase) 1 spray TWICE A DAY NASAL 02/15/19 18:00 03/17/19 17:59 02/17/19 08:58 Folic Acid (Folate) 1 mg DAILY ORAL 02/17/19 09:00 03/19/19 08:59 02/17/19 08:57 Gabapentin (Neurontin) 300 mg TID NG 02/15/19 18:00 03/17/19 17:59 02/17/19 08:57 Insulin Aspart (NovoLOG) BEFORE MEALS AND HS SUBQ 02/15/19 16:30 03/17/19 16:29 02/17/19 06:00 Levofloxacin (Levaquin) 750 mg Q48H ORAL 02/17/19 09:00 02/24/19 08:59 02/17/19 08:58 Lorazepam (Ativan) 1 mg Q4H PRN ORAL anxiety 02/16/19 16:28 02/23/19 16:27 Losartan Potassium (Cozaar) 50 mg DAILY ORAL 02/16/19 09:00 03/18/19 08:59 02/17/19 08:57 Magnesium Hydroxide (Mom) 30 ml HSPRN PRN ORAL Constipation 02/15/19 15:00 03/17/19 14:59 Metformin HCl (Glucophage) 500 mg BID ORAL 02/15/19 18:00 03/17/19 17:59 02/17/19 08:57 Risperidone (RisperDAL) 2 mg DAILY ORAL 02/17/19 09:00 03/19/19 08:59 02/17/19 08:57 Risperidone (RisperDAL) 3 mg QHS ORAL 02/15/19 21:00 03/17/19 20:59 02/16/19 21:14 Temazepam (Restoril) 15 mg HSPRN PRN ORAL Insomnia 02/15/19 23:30 02/22/19 23:29 02/15/19 23:56 Seth Waggoner MD Feb 17, 2019 11:15
--- NOTE | 2019-02-17 12:18 | Hematology/Onc Progress Note ---
Assessment/Plan Assessment/Plan ASSESSMENT AND RECOMMENDATIONS # Anemia of chronic disease (or of iron deficiency) due to underlying chronic medical issues, multifactorial --> Anemia workup has been ordered, rule out gi bleed --> No evidence of hemolysis is noted, peripheral smear has been reviewed. --> Hgb goal >7. Transfuse prn. --> Epogen or iron at this time is not particularly indicated --> Medications have been reviewed --> low threshold for gi evaluation in case has occult + --> bone marrow biopsy is not indicated given the other more likely causes # Bronchitis, may have a component of seasonal allergies. --> ID is following, appreciate recs. # DM. # Obesity. # Hypothyroidism. The time note is entered does not necessarily reflects the time the patient was examined. Greatly appreciate consultation. Subjective Allergies: Coded Allergies: AMOXICILLIN (Verified Allergy, Unknown, 02/14/10) PENICILLINS (Verified Allergy, Unknown, 02/14/10) Uncoded Allergies: EGGS (Allergy, Unknown, 02/14/10) Subjective 02/17: No SOB or acute respiratory distress Objective Objective Current Medications Medications (Trade) Dose Ordered Sig/Latasha Route PRN Reason Start Time Stop Time Status Last Admin Dose Admin Acetaminophen/ Hydrocodone Bitart ([place] 5/325) 1 tab Q6H PRN ORAL Severe Pain (Pain Scale 7-10) 02/15/19 15:00 02/22/19 14:59 02/17/19 08:59 Amlodipine Besylate (Norvasc) 5 mg DAILY ORAL 02/16/19 09:00 03/18/19 08:59 02/17/19 08:58 Clonidine HCl (Catapres Tab) 0.1 mg Q8H PRN ORAL For High Blood Pressure 02/15/19 15:00 03/17/19 14:59 Dextrose (Dextrose 50%) 25 ml Q30M PRN IV Hypoglycemia 02/15/19 14:30 03/17/19 14:29 Dextrose (Dextrose 50%) 50 ml Q30M PRN IV Hypoglycemia 02/15/19 14:30 03/17/19 14:29 Escitalopram Oxalate (Lexapro) 10 mg DAILY ORAL 02/17/19 09:00 03/19/19 08:59 02/17/19 08:57 Ferrous Sulfate (Feosol) 325 mg DAILY ORAL 02/16/19 09:00 03/18/19 08:59 02/17/19 08:57 Fluticasone Propionate (Flonase) 1 spray TWICE A DAY NASAL 02/15/19 18:00 03/17/19 17:59 02/17/19 08:58 Folic Acid (Folate) 1 mg DAILY ORAL 02/17/19 09:00 03/19/19 08:59 02/17/19 08:57 Gabapentin (Neurontin) 300 mg TID NG 02/15/19 18:00 03/17/19 17:59 02/17/19 08:57 Insulin Aspart (NovoLOG) BEFORE MEALS AND HS SUBQ 02/15/19 16:30 03/17/19 16:29 02/17/19 11:44 Levofloxacin (Levaquin) 750 mg Q48H ORAL 02/17/19 09:00 02/24/19 08:59 02/17/19 08:58 Lorazepam (Ativan) 1 mg Q4H PRN ORAL anxiety 02/16/19 16:28 02/23/19 16:27 Losartan Potassium (Cozaar) 50 mg DAILY ORAL 02/16/19 09:00 03/18/19 08:59 02/17/19 08:57 Magnesium Hydroxide (Mom) 30 ml HSPRN PRN ORAL Constipation 02/15/19 15:00 03/17/19 14:59 Metformin HCl (Glucophage) 500 mg BID ORAL 02/15/19 18:00 03/17/19 17:59 02/17/19 08:57 Risperidone (RisperDAL) 2 mg DAILY ORAL 02/17/19 09:00 03/19/19 08:59 02/17/19 08:57 Risperidone (RisperDAL) 3 mg QHS ORAL 02/15/19 21:00 03/17/19 20:59 02/16/19 21:14 Temazepam (Restoril) 15 mg HSPRN PRN ORAL Insomnia 02/15/19 23:30 02/22/19 23:29 02/15/19 23:56 Last 24 Hour Vital Signs Date Time Temp Pulse Resp B/P (MAP) Pulse Ox O2 Delivery O2 Flow Rate FiO2 02/17/19 09:29 97.9 02/17/19 09:00 Room Air 02/17/19 08:58 72 136/73 02/17/19 08:57 136/73 02/17/19 08:00 97.9 72 20 136/73 (94) 96 02/17/19 04:00 98.2 75 18 123/78 (93) 94 02/17/19 00:00 98.0 73 18 158/73 (101) 94 02/16/19 21:00 Room Air 02/16/19 20:00 97.9 71 20 154/77 (102) 97 02/16/19 16:01 97.7 77 18 162/76 (104) 96 02/16/19 11:53 98.4 81 18 149/81 (103) 96 02/16/19 09:00 Room Air 02/16/19 08:28 157/74 02/16/19 08:27 75 157/74 02/16/19 08:00 98.6 75 17 157/74 (101) 96 02/16/19 04:00 98.0 91 18 123/67 (85) 98 02/16/19 00:00 97.7 72 18 151/74 (99) 96 02/15/19 21:00 Room Air 02/15/19 20:00 98.6 69 18 159/83 (108) 98 02/15/19 16:12 98.6 71 142/77 (98) 98 02/15/19 12:55 98.8 74 146/83 (104) 98 02/15/19 12:52 Room Air 02/15/19 12:20 98.2 71 18 137/82 98 Room Air Intake and Output 02/16/19 02/17/19 18:59 06:59 Intake Total 2000 ml Balance 2000 ml Intake Oral 2000 ml # Voids 6 2 Labs Test 02/15/19 10:47 02/15/19 12:15 02/15/19 18:15 02/16/19 18:30 White Blood Count 7.4 K/UL (4.8-10.8) 6.3 K/UL (4.8-10.8) 8.9 K/UL (4.8-10.8) Red Blood Count 3.93 M/UL (4.20-5.40) 3.67 M/UL (4.20-5.40) 3.84 M/UL (4.20-5.40) Hemoglobin 11.1 G/DL (12.0-16.0) 10.1 G/DL (12.0-16.0) 10.7 G/DL (12.0-16.0) Hematocrit 32.6 % (37.0-47.0) 29.5 % (37.0-47.0) 31.4 % (37.0-47.0) Mean Corpuscular Volume 83 FL (80-99) 80 FL (80-99) 82 FL (80-99) Mean Corpuscular Hemoglobin 28.3 PG (27.0-31.0) 27.6 PG (27.0-31.0) 27.9 PG (27.0-31.0) Mean Corpuscular Hemoglobin Concent 34.1 G/DL (32.0-36.0) 34.3 G/DL (32.0-36.0) 34.1 G/DL (32.0-36.0) Red Cell Distribution Width 13.5 % (11.6-14.8) 12.5 % (11.6-14.8) 13.2 % (11.6-14.8) Platelet Count 238 K/UL (150-450) 236 K/UL (150-450) 251 K/UL (150-450) Mean Platelet Volume 6.8 FL (6.5-10.1) 5.6 FL (6.5-10.1) 6.2 FL (6.5-10.1) Neutrophils (%) (Auto) 68.6 % (45.0-75.0) 63.8 % (45.0-75.0) % (45.0-75.0) Lymphocytes (%) (Auto) 23.9 % (20.0-45.0) 26.3 % (20.0-45.0) % (20.0-45.0) Monocytes (%) (Auto) 6.4 % (1.0-10.0) 8.6 % (1.0-10.0) % (1.0-10.0) Eosinophils (%) (Auto) 0.1 % (0.0-3.0) 0.3 % (0.0-3.0) % (0.0-3.0) Basophils (%) (Auto) 1.0 % (0.0-2.0) 0.9 % (0.0-2.0) % (0.0-2.0) Sodium Level 134 MMOL/L (136-145) 137 MMOL/L (136-145) Potassium Level 4.4 MMOL/L (3.5-5.1) 4.0 MMOL/L (3.5-5.1) Chloride Level 99 MMOL/L (98-107) 101 MMOL/L (98-107) Carbon Dioxide Level 30 MMOL/L (21-32) 30 MMOL/L (21-32) Anion Gap 6 mmol/L (5-15) 6 mmol/L (5-15) Blood Urea Nitrogen 15 mg/dL (7-18) 19 mg/dL (7-18) Creatinine 1.1 MG/DL (0.55-1.30) 1.3 MG/DL (0.55-1.30) Estimat Glomerular Filtration Rate mL/min (>60) mL/min (>60) Glucose Level 130 MG/DL (74-106) 220 MG/DL (74-106) Calcium Level 9.0 MG/DL (8.5-10.1) 9.3 MG/DL (8.5-10.1) Total Bilirubin 0.7 MG/DL (0.2-1.0) 0.5 MG/DL (0.2-1.0) Aspartate Amino Transf (AST/SGOT) 27 U/L (15-37) 15 U/L (15-37) Alanine Aminotransferase (ALT/SGPT) 26 U/L (12-78) 21 U/L (12-78) Alkaline Phosphatase 91 U/L (46-116) 89 U/L (46-116) Creatine Kinase MB 4.6 NG/ML (0.0-3.6) Troponin I 0.000 ng/mL (0.000-0.056) Pro-B-Type Natriuretic Peptide 339 pg/mL (0-125) Total Protein 7.5 G/DL (6.4-8.2) 7.1 G/DL (6.4-8.2) Albumin 3.1 G/DL (3.4-5.0) 3.2 G/DL (3.4-5.0) Globulin 4.4 g/dL 3.9 g/dL Albumin/Globulin Ratio 0.7 (1.0-2.7) 0.8 (1.0-2.7) Lipase 148 U/L (73-393) Urine Color Pale yellow Urine Appearance Clear Urine pH 7 (4.5-8.0) Urine Specific [place] 1.005 (1.005-1.035) Urine Protein 1+ (NEGATIVE) Urine Glucose (UA) 1+ (NEGATIVE) Urine Ketones Negative (NEGATIVE) Urine Blood Negative (NEGATIVE) Urine Nitrite Negative (NEGATIVE) Urine Bilirubin Negative (NEGATIVE) Urine Urobilinogen Normal MG/DL (0.0-1.0) Urine Leukocyte Esterase 1+ (NEGATIVE) Urine RBC 0 /HPF (0 - 2) Urine WBC 0-2 /HPF (0 - 2) Urine Squamous Epithelial Cells Few /LPF (NONE/OCC) Urine Bacteria Occasional /HPF (NONE) Differential Total Cells Counted 100 Neutrophils % (Manual) 64 % (45-75) Lymphocytes % (Manual) 31 % (20-45) Monocytes % (Manual) 4 % (1-10) Eosinophils % (Manual) 1 % (0-3) Basophils % (Manual) 0 % (0-2) Band Neutrophils 0 % (0-8) Platelet Estimate Adequate Platelet Morphology Normal Red Blood Cell Morphology Normal Reticulocyte Count 1.2 % (0.5-2.0) Prothrombin Time 10.0 SEC (9.30-11.50) Prothromb Time International Ratio 0.9 (0.9-1.1) Iron Level 35 ug/dL (50-175) Total Iron Binding Capacity 250 ug/dL (250-450) Percent Iron Saturation 14 % (15-50) Unsaturated Iron Binding 215 ug/dL (112-346) Ferritin 58 NG/ML (8-388) Lactate Dehydrogenase 173 U/L (81-234) Carcinoembryonic Antigen 2.1 ng/mL (0.0-4.7) Vitamin B12 Level 848 PG/ML (193-986) Folate 7.4 NG/ML (8.6-58.9) Thyroid Stimulating Hormone (TSH) 3.677 uiU/mL (0.358-3.740) Test 02/17/19 05:12 White Blood Count 6.9 K/UL (4.8-10.8) Red Blood Count 3.94 M/UL (4.20-5.40) Hemoglobin 11.1 G/DL (12.0-16.0) Hematocrit 32.8 % (37.0-47.0) Mean Corpuscular Volume 83 FL (80-99) Mean Corpuscular Hemoglobin 28.2 PG (27.0-31.0) Mean Corpuscular Hemoglobin Concent 33.8 G/DL (32.0-36.0) Red Cell Distribution Width 13.6 % (11.6-14.8) Platelet Count 247 K/UL (150-450) Mean Platelet Volume 6.5 FL (6.5-10.1) Neutrophils (%) (Auto) 68.3 % (45.0-75.0) Lymphocytes (%) (Auto) 23.2 % (20.0-45.0) Monocytes (%) (Auto) 7.7 % (1.0-10.0) Eosinophils (%) (Auto) 0.2 % (0.0-3.0) Basophils (%) (Auto) 0.6 % (0.0-2.0) Height (Feet): 5 Height (Inches): 3.00 Weight (Pounds): 246 Margarito Jamison MD Feb 17, 2019 12:18
--- NOTE | 2019-02-17 15:18 | NUR ---
NURSE NOTES: Dr DUNCAN visited pt and is aware about VRE RECTUM ordered colonized. noted and carried out. will continue to monitor.
--- NOTE | 2019-02-17 19:31 | NUR ---
HAND-OFF: Report given to RN LUCY.
--- NOTE | 2019-02-17 19:35 | NUR ---
NURSE NOTES: RECEIVED PT FROM BETHANIE MCLEOD. PT IS ASLEEP, ON ROOM AIR, NO ACUTE DISTRESS NOTED. IV D/C PER PT, WILL FOLLOW UP TO INSERT NEW IV. BED IS LOCKED AT THE LOWEST POSITION, BED ALARM ACTIVE, SIDE RAILS UP X2, AND CALL LIGHT IS WITHIN REACH. WILL CONTINUE TO MONITOR.
--- NOTE | 2019-02-17 21:44 | General Progress Note ---
Assessment/Plan Problem List: (1) Respiratory distress ICD Codes: R06.03 - Acute respiratory distress SNOMED: 316977912 (2) Pneumonia ICD Codes: J18.9 - Pneumonia, unspecified organism SNOMED: 695376144 Status: progressing Assessment/Plan: pna improving resp insuff responding to abx afebrile abx per id Subjective ROS Limited/Unobtainable: Yes Allergies: Coded Allergies: AMOXICILLIN (Verified Allergy, Unknown, 02/14/10) PENICILLINS (Verified Allergy, Unknown, 02/14/10) Uncoded Allergies: EGGS (Allergy, Unknown, 02/14/10) Objective Last 24 Hour Vital Signs Date Time Temp Pulse Resp B/P (MAP) Pulse Ox O2 Delivery O2 Flow Rate FiO2 02/17/19 15:53 98.2 82 20 136/68 (90) 99 02/17/19 14:00 151/78 (102) 02/17/19 12:27 167/81 02/17/19 12:00 98.2 86 20 167/81 (109) 95 02/17/19 09:29 97.9 02/17/19 09:00 Room Air 02/17/19 08:58 72 136/73 02/17/19 08:57 136/73 02/17/19 08:00 97.9 72 20 136/73 (94) 96 02/17/19 04:00 98.2 75 18 123/78 (93) 94 02/17/19 00:00 98.0 73 18 158/73 (101) 94 Intake and Output 02/16/19 02/17/19 19:00 07:00 Intake Total 2000 ml Balance 2000 ml Intake Oral 2000 ml # Voids 6 2 Laboratory Tests 02/17/19 05:12: White Blood Count 6.9, Red Blood Count 3.94L, Hemoglobin 11.1L, Hematocrit 32.8L , Mean Corpuscular Volume 83, Mean Corpuscular Hemoglobin 28.2, Mean Corpuscular Hemoglobin Concent 33.8, Red Cell Distribution Width 13.6, Platelet Count 247, Mean Platelet Volume 6.5, Neutrophils (%) (Auto) 68.3, Lymphocytes (% ) (Auto) 23.2, Monocytes (%) (Auto) 7.7, Eosinophils (%) (Auto) 0.2, Basophils ( %) (Auto) 0.6 Height (Feet): 5 Height (Inches): 3.00 Weight (Pounds): 246 Cardiovascular: normal rate Respiratory/Chest: lungs clear Abdomen: soft Garett Mccloud MD Feb 17, 2019 21:44
[2019-02-18] VITALS: BP 152/75
--- NOTE | 2019-02-18 01:30 | Progress Note ---
DATE: 02/17/2019 SUBJECTIVE: The patient is presenting with depressed mood, anxiety , poor insight and poor memory. Not engaged during the evaluation and anxious. MENTAL STATUS EXAMINATION: Alert and oriented times to self, confused and disoriented. Mood is anxious. Affect is constricted, congruent with mood. Thought process is concrete. Thought content, no suicidal or homicidal ideations. ASSESSMENT: 1. Anxiety disorder. 2. Dementia. PLAN: The patient will be continued current medication. Provide the patient with reality orientation and supportive therapy. Analia Shaffer M.D. DR: JOVITA JOB#: [id number] CC:
--- NOTE | 2019-02-18 02:30 | NUR ---
NURSE NOTES: INSERTED NEW IV ON RIGHT HAND 22G. INTACT AND PATENT. PT IS SITTING UP IN BED, EATING SNACKS. DENIES PAIN AND SOB. O2 96 ON ROOM AIR. WILL CONTINUE TO MONITOR.
[2019-02-18 04:00] VITALS: BP 144/73
[2019-02-18 04:54] LABS: BASOPHILS % (AUTO) 0.5 % (0.0-2.0); EOSINOPHILS % (AUTO) 0.2 % (0.0-3.0); HEMATOCRIT 32.9 % (37.0-47.0); HEMOGLOBIN 11.3 G/DL (12.0-16.0); LYMPHOCYTES % (AUTO) 16.5 % (20.0-45.0); MEAN CORPUSCULAR VOLUME 83 FL (80-99); MONOCYTES % (AUTO) 6.9 % (1.0-10.0); NEUTROPHILS % (AUTO) 75.9 % (45.0-75.0); PLATELET COUNT 247 K/UL (150-450); RED BLOOD COUNT 3.95 M/UL (4.20-5.40); RED CELL DISTRIBUTION WIDTH 13.3 % (11.6-14.8); WHITE BLOOD COUNT 8.6 K/UL (4.8-10.8)
[2019-02-18] MEDS: NovoLOG Insulin Flexpen SUBQ SCH ×4 (06:13→21:29)
--- NOTE | 2019-02-18 07:49 | NUR ---
HAND-OFF: Report given to BETHANIE KAY and BETHANIE CACERES.
[2019-02-18 08:00] VITALS: BP 156/66
[2019-02-18] MEDS: Losartan 50mg tab ORAL SCH (09:06)
[2019-02-18] MEDS: metFORMIN 500mg tab ORAL SCH ×2 (09:06→17:18)
[2019-02-18] MEDS: Flonase Nasal Inhaler 16gm NASAL SCH ×2 (09:11→17:20)
[2019-02-18] MEDS: Gabapentin 300 MG/6 ML Soln NG SCH ×3 (09:20→17:18)
--- NOTE | 2019-02-18 11:18 | NUR ---
NURSE NOTES: Patient resting in bed. A/O x 3, forgetful. VSS, denies pain. bed in low position, call light within reach. will continue to monitor.
--- NOTE | 2019-02-18 11:29 | NUR ---
RD ASSESSMENT & RECOMMENDATIONS SEE CARE ACTIVITY FOR COMPLETE ASSESSMENT DAILY ESTIMATED NEEDS: Needs based on DM, obese 64.6kg adj 20-25 kcals/kg 5036-1700 total kcals 1-1.5 g protein/kg 65-97 g total protein 25-30 mL/kg 4268-4721 total fluid mLs NUTRITION DIAGNOSIS: Altered nutrition related lab values r/t diabetes as evidenced by elev BG (130-220), elev POC, pt on oral and IM hypoglycemics. ([facility]ET: [facility] PO DIET RECOMMENDATIONS-->> rec DIET CHANGE TO [facility]OW/ LACTOSE FREE ADDITIONAL RECOMMENDATIONS: 1) Calibrated bed scale wts 2) Monitor po intake/ need for snacks 3) Check lytes daily, replete as needed
[2019-02-18 12:00] VITALS: BP 161/74
--- NOTE | 2019-02-18 12:30 | Infectious Diseases Prog Note ---
Assessment/Plan Assessment/Plan IMPRESSION: Bronchitis, Positive blood culture with Staph hominis,likely contamination seasonal allergies. The DM. obesity hypothyroidism. VRE carrier RECOMMENDATIONS: Continue Levaquin. Subjective ROS Limited/Unobtainable: Yes Constitutional: Reports: no symptoms Respiratory: Reports: no symptoms Gastrointestinal/Abdominal: Reports: no symptoms Allergies: Coded Allergies: AMOXICILLIN (Verified Allergy, Unknown, 02/14/10) PENICILLINS (Verified Allergy, Unknown, 02/14/10) Uncoded Allergies: EGGS (Allergy, Unknown, 02/14/10) Objective Vital Signs Last 24 Hour Vital Signs Date Time Temp Pulse Resp B/P (MAP) Pulse Ox O2 Delivery O2 Flow Rate FiO2 02/18/19 12:00 98.0 70 18 161/74 (103) 98 02/18/19 11:47 161/79 02/18/19 11:44 156/66 02/18/19 09:14 70 156/66 02/18/19 09:06 156/66 02/18/19 09:00 Room Air 02/18/19 08:00 98.5 70 18 156/66 (96) 95 02/18/19 04:00 98.2 71 18 144/73 (96) 94 02/18/19 00:00 98.1 69 18 152/75 (100) 02/17/19 21:00 Room Air 02/17/19 20:00 98.2 74 20 160/67 (98) 97 02/17/19 15:53 98.2 82 20 136/68 (90) 99 02/17/19 14:00 151/78 (102) Height (Feet): 5 Height (Inches): 3.00 Weight (Pounds): 246 General Appearance: no acute distress, other - obese Respiratory/Chest: lungs clear Cardiovascular: normal rate Abdomen: soft, non tender Extremities: no edema Neurologic/Psychiatric: alert, responsive Laboratory Tests Test 02/18/19 04:46 White Blood Count 8.6 K/UL (4.8-10.8) Red Blood Count 3.95 M/UL (4.20-5.40) L Hemoglobin 11.3 G/DL (12.0-16.0) L Hematocrit 32.9 % (37.0-47.0) L Mean Corpuscular Volume 83 FL (80-99) Mean Corpuscular Hemoglobin 28.6 PG (27.0-31.0) Mean Corpuscular Hemoglobin Concent 34.3 G/DL (32.0-36.0) Red Cell Distribution Width 13.3 % (11.6-14.8) Platelet Count 247 K/UL (150-450) Mean Platelet Volume 6.2 FL (6.5-10.1) L Neutrophils (%) (Auto) 75.9 % (45.0-75.0) H Lymphocytes (%) (Auto) 16.5 % (20.0-45.0) L Monocytes (%) (Auto) 6.9 % (1.0-10.0) Eosinophils (%) (Auto) 0.2 % (0.0-3.0) Basophils (%) (Auto) 0.5 % (0.0-2.0) Current Medications Medications (Trade) Dose Ordered Sig/Latasha Route PRN Reason Start Time Stop Time Status Last Admin Dose Admin Acetaminophen/ Hydrocodone Bitart ([place] 5/325) 1 tab Q6H PRN ORAL Severe Pain (Pain Scale 7-10) 02/15/19 15:00 02/22/19 14:59 02/17/19 08:59 Amlodipine Besylate (Norvasc) 5 mg DAILY ORAL 02/16/19 09:00 03/18/19 08:59 02/18/19 09:14 Clonidine HCl (Catapres Tab) 0.1 mg Q8H PRN ORAL For High Blood Pressure 02/15/19 15:00 03/17/19 14:59 02/18/19 11:47 Dextrose (Dextrose 50%) 25 ml Q30M PRN IV Hypoglycemia 02/15/19 14:30 03/17/19 14:29 Dextrose (Dextrose 50%) 50 ml Q30M PRN IV Hypoglycemia 02/15/19 14:30 03/17/19 14:29 Escitalopram Oxalate (Lexapro) 10 mg DAILY ORAL 02/17/19 09:00 03/19/19 08:59 02/18/19 09:04 Ferrous Sulfate (Feosol) 325 mg DAILY ORAL 02/16/19 09:00 03/18/19 08:59 02/18/19 09:05 Fluticasone Propionate (Flonase) 1 spray TWICE A DAY NASAL 02/15/19 18:00 03/17/19 17:59 02/18/19 09:11 Folic Acid (Folate) 1 mg DAILY ORAL 02/17/19 09:00 03/19/19 08:59 02/18/19 09:05 Gabapentin (Neurontin) 300 mg TID NG 02/15/19 18:00 03/17/19 17:59 02/18/19 11:48 Insulin Aspart (NovoLOG) BEFORE MEALS AND HS SUBQ 02/15/19 16:30 03/17/19 16:29 02/18/19 11:53 Levofloxacin (Levaquin) 750 mg Q48H ORAL 02/17/19 09:00 02/24/19 08:59 02/17/19 08:58 Lorazepam (Ativan) 1 mg Q4H PRN ORAL anxiety 02/16/19 16:28 02/23/19 16:27 Losartan Potassium (Cozaar) 50 mg DAILY ORAL 02/16/19 09:00 03/18/19 08:59 02/18/19 09:06 Magnesium Hydroxide (Mom) 30 ml HSPRN PRN ORAL Constipation 02/15/19 15:00 03/17/19 14:59 Metformin HCl (Glucophage) 500 mg BID ORAL 02/15/19 18:00 03/17/19 17:59 02/18/19 09:06 Risperidone (RisperDAL) 2 mg DAILY ORAL 02/17/19 09:00 03/19/19 08:59 02/18/19 09:04 Risperidone (RisperDAL) 3 mg QHS ORAL 02/15/19 21:00 03/17/19 20:59 02/16/19 21:14 Temazepam (Restoril) 15 mg HSPRN PRN ORAL Insomnia 02/15/19 23:30 02/22/19 23:29 02/15/19 23:56 Seth Waggoner MD Feb 18, 2019 12:30
[2019-02-18 16:00] VITALS: BP 141/62
--- NOTE | 2019-02-18 16:47 | Hematology/Onc Progress Note ---
Assessment/Plan Assessment/Plan ASSESSMENT AND RECOMMENDATIONS # Anemia of iron deficiency, with low ferritin level of 58 --> Anemia workup has been ordered, rule out gi bleed, has been reviewed --> No evidence of hemolysis is noted, peripheral smear has been reviewed. --> Hgb goal >7. Transfuse prn. --> Iron PO has been started --> Medications have been reviewed --> low threshold for gi evaluation in case has occult + --> as per gi recs # Bronchitis, may have a component of seasonal allergies. --> ID is following, appreciate recs. # DM. # Obesity. # Hypothyroidism. # Anxiety --> per psych recs The time note is entered does not necessarily reflects the time the patient was examined. Greatly appreciate consultation. Subjective HEENT: Denies: no symptoms, eye pain, blurred vision, tearing, double vision, ear pain, ear discharge, nose pain, nose congestion, throat pain, throat swelling, mouth pain, mouth swelling, other Cardiovascular: Denies: no symptoms, chest pain, edema, irregular heart rate, lightheadedness, palpitations, syncope, other Respiratory: Denies: no symptoms, cough, shortness of breath, SOB with excertion, SOB at rest, sputum, wheezing, other Gastrointestinal/Abdominal: Denies: no symptoms, abdomen distended, abdominal pain, black stools, tarry stools, blood in stool, constipated, diarrhea, difficulty swallowing, nausea, poor appetite, poor fluid intake, rectal bleeding , vomiting, other Genitourinary: Denies: no symptoms, burning, discharge, frequency, flank pain, hematuria, incontinence, pain, urgency, other Neurologic/Psychiatric: Denies: no symptoms, anxiety, depressed, emotional problems, headache, numbness, paresthesia, pre-existing deficit, seizure, tingling, tremors, weakness, other Allergies: Coded Allergies: AMOXICILLIN (Verified Allergy, Unknown, 02/14/10) PENICILLINS (Verified Allergy, Unknown, 02/14/10) Uncoded Allergies: EGGS (Allergy, Unknown, 02/14/10) Subjective 02/17: No SOB or acute respiratory distress 02/18: remains anxious, no f/c, seen by psych and id, pcp Objective Objective Current Medications Medications (Trade) Dose Ordered Sig/Latasha Route PRN Reason Start Time Stop Time Status Last Admin Dose Admin Acetaminophen/ Hydrocodone Bitart ([place] 325) 1 tab Q6H PRN ORAL Severe Pain (Pain Scale 7-10) 02/15/19 15:00 02/22/19 14:59 02/17/19 08:59 Al Hydroxide/Mg Hydroxide (Mylanta) 30 ml Q4H PRN ORAL heartburn and upset stomach 02/18/19 14:45 03/20/19 14:44 Amlodipine Besylate (Norvasc) 5 mg DAILY ORAL 02/16/19 09:00 03/18/19 08:59 02/18/19 09:14 Clonidine HCl (Catapres Tab) 0.1 mg Q8H PRN ORAL For High Blood Pressure 02/15/19 15:00 03/17/19 14:59 02/18/19 11:47 Dextrose (Dextrose 50%) 25 ml Q30M PRN IV Hypoglycemia 02/15/19 14:30 03/17/19 14:29 Dextrose (Dextrose 50%) 50 ml Q30M PRN IV Hypoglycemia 02/15/19 14:30 03/17/19 14:29 Escitalopram Oxalate (Lexapro) 10 mg DAILY ORAL 02/17/19 09:00 03/19/19 08:59 02/18/19 09:04 Ferrous Sulfate (Feosol) 325 mg DAILY ORAL 02/16/19 09:00 03/18/19 08:59 02/18/19 09:05 Fluticasone Propionate (Flonase) 1 spray TWICE A DAY NASAL 02/15/19 18:00 03/17/19 17:59 02/18/19 09:11 Folic Acid (Folate) 1 mg DAILY ORAL 02/17/19 09:00 03/19/19 08:59 02/18/19 09:05 Gabapentin (Neurontin) 300 mg TID NG 02/15/19 18:00 03/17/19 17:59 02/18/19 11:48 Insulin Aspart (NovoLOG) BEFORE MEALS AND HS SUBQ 02/15/19 16:30 03/17/19 16:29 02/18/19 11:53 Levofloxacin (Levaquin) 750 mg Q48H ORAL 02/17/19 09:00 02/24/19 08:59 02/17/19 08:58 Lorazepam (Ativan) 1 mg Q4H PRN ORAL anxiety 02/16/19 16:28 02/23/19 16:27 Losartan Potassium (Cozaar) 50 mg DAILY ORAL 02/16/19 09:00 03/18/19 08:59 02/18/19 09:06 Magnesium Hydroxide (Mom) 30 ml HSPRN PRN ORAL Constipation 02/15/19 15:00 03/17/19 14:59 Metformin HCl (Glucophage) 500 mg BID ORAL 02/15/19 18:00 03/17/19 17:59 02/18/19 09:06 Risperidone (RisperDAL) 2 mg DAILY ORAL 02/17/19 09:00 03/19/19 08:59 02/18/19 09:04 Risperidone (RisperDAL) 3 mg QHS ORAL 02/15/19 21:00 03/17/19 20:59 02/16/19 21:14 Temazepam (Restoril) 15 mg HSPRN PRN ORAL Insomnia 02/15/19 23:30 02/22/19 23:29 02/15/19 23:56 Last 24 Hour Vital Signs Date Time Temp Pulse Resp B/P (MAP) Pulse Ox O2 Delivery O2 Flow Rate FiO2 02/18/19 16:00 99.2 66 18 141/62 (88) 98 02/18/19 12:00 98.0 70 18 161/74 (103) 98 02/18/19 11:47 161/79 02/18/19 11:44 156/66 02/18/19 09:14 70 156/66 02/18/19 09:06 156/66 02/18/19 09:00 Room Air 02/18/19 08:00 98.5 70 18 156/66 (96) 95 02/18/19 04:00 98.2 71 18 144/73 (96) 94 02/18/19 00:00 98.1 69 18 152/75 (100) 02/17/19 21:00 Room Air 02/17/19 20:00 98.2 74 20 160/67 (98) 97 02/17/19 15:53 98.2 82 20 136/68 (90) 99 02/17/19 14:00 151/78 (102) 02/17/19 12:27 167/81 02/17/19 12:00 98.2 86 20 167/81 (109) 95 02/17/19 09:29 97.9 02/17/19 09:00 Room Air 02/17/19 08:58 72 136/73 02/17/19 08:57 136/73 02/17/19 08:00 97.9 72 20 136/73 (94) 96 02/17/19 04:00 98.2 75 18 123/78 (93) 94 02/17/19 00:00 98.0 73 18 158/73 (101) 94 02/16/19 21:00 Room Air 02/16/19 20:00 97.9 71 20 154/77 (102) 97 Intake and Output 02/17/19 02/18/19 19:00 07:00 Intake Total 720 ml 240 ml Output Total 1 ml Balance 720 ml 239 ml Intake Oral 720 ml 240 ml Output Urine Total 1 ml # Voids 2 1 Labs Test 02/15/19 18:15 02/16/19 18:30 02/17/19 05:12 02/18/19 04:46 White Blood Count 6.3 K/UL (4.8-10.8) 8.9 K/UL (4.8-10.8) 6.9 K/UL (4.8-10.8) 8.6 K/UL (4.8-10.8) Red Blood Count 3.67 M/UL (4.20-5.40) 3.84 M/UL (4.20-5.40) 3.94 M/UL (4.20-5.40) 3.95 M/UL (4.20-5.40) Hemoglobin 10.1 G/DL (12.0-16.0) 10.7 G/DL (12.0-16.0) 11.1 G/DL (12.0-16.0) 11.3 G/DL (12.0-16.0) Hematocrit 29.5 % (37.0-47.0) 31.4 % (37.0-47.0) 32.8 % (37.0-47.0) 32.9 % (37.0-47.0) Mean Corpuscular Volume 80 FL (80-99) 82 FL (80-99) 83 FL (80-99) 83 FL (80- 99) Mean Corpuscular Hemoglobin 27.6 PG (27.0-31.0) 27.9 PG (27.0-31.0) 28.2 PG (27.0-31.0) 28.6 PG (27.0-31.0) Mean Corpuscular Hemoglobin Concent 34.3 G/DL (32.0-36.0) 34.1 G/DL (32.0-36.0) 33.8 G/DL (32.0-36.0) 34.3 G/DL (32.0-36.0) Red Cell Distribution Width 12.5 % (11.6-14.8) 13.2 % (11.6-14.8) 13.6 % (11.6-14.8) 13.3 % (11.6-14.8) Platelet Count 236 K/UL (150-450) 251 K/UL (150-450) 247 K/UL (150-450) 247 K/UL (150-450) Mean Platelet Volume 5.6 FL (6.5-10.1) 6.2 FL (6.5-10.1) 6.5 FL (6.5-10.1) 6.2 FL (6.5-10.1) Neutrophils (%) (Auto) 63.8 % (45.0-75.0) % (45.0-75.0) 68.3 % (45.0-75.0) 75.9 % (45.0-75.0) Lymphocytes (%) (Auto) 26.3 % (20.0-45.0) % (20.0-45.0) 23.2 % (20.0-45.0) 16.5 % (20.0-45.0) Monocytes (%) (Auto) 8.6 % (1.0-10.0) % (1.0-10.0) 7.7 % (1.0-10.0) 6.9 % (1.0-10.0) Eosinophils (%) (Auto) 0.3 % (0.0-3.0) % (0.0-3.0) 0.2 % (0.0-3.0) 0.2 % (0.0-3.0) Basophils (%) (Auto) 0.9 % (0.0-2.0) % (0.0-2.0) 0.6 % (0.0-2.0) 0.5 % (0.0-2.0) Sodium Level 137 MMOL/L (136-145) Potassium Level 4.0 MMOL/L (3.5-5.1) Chloride Level 101 MMOL/L (98-107) Carbon Dioxide Level 30 MMOL/L (21-32) Anion Gap 6 mmol/L (5-15) Blood Urea Nitrogen 19 mg/dL (7-18) Creatinine 1.3 MG/DL (0.55-1.30) Estimat Glomerular Filtration Rate mL/min (>60) Glucose Level 220 MG/DL (74-106) Calcium Level 9.3 MG/DL (8.5-10.1) Total Bilirubin 0.5 MG/DL (0.2-1.0) Aspartate Amino Transf (AST/SGOT) 15 U/L (15-37) Alanine Aminotransferase (ALT/SGPT) 21 U/L (12-78) Alkaline Phosphatase 89 U/L (46-116) Total Protein 7.1 G/DL (6.4-8.2) Albumin 3.2 G/DL (3.4-5.0) Globulin 3.9 g/dL Albumin/Globulin Ratio 0.8 (1.0-2.7) Differential Total Cells Counted 100 Neutrophils % (Manual) 64 % (45-75) Lymphocytes % (Manual) 31 % (20-45) Monocytes % (Manual) 4 % (1-10) Eosinophils % (Manual) 1 % (0-3) Basophils % (Manual) 0 % (0-2) Band Neutrophils 0 % (0-8) Other Cell Type See comments Platelet Estimate Adequate Platelet Morphology Normal Red Blood Cell Morphology Normal Reticulocyte Count 1.2 % (0.5-2.0) Prothrombin Time 10.0 SEC (9.30-11.50) Prothromb Time International Ratio 0.9 (0.9-1.1) Iron Level 35 ug/dL (50-175) Total Iron Binding Capacity 250 ug/dL (250-450) Percent Iron Saturation 14 % (15-50) Unsaturated Iron Binding 215 ug/dL (112-346) Ferritin 58 NG/ML (8-388) Lactate Dehydrogenase 173 U/L (81-234) Carcinoembryonic Antigen 2.1 ng/mL (0.0-4.7) Vitamin B12 Level 848 PG/ML (193-986) Folate 7.4 NG/ML (8.6-58.9) Thyroid Stimulating Hormone (TSH) 3.677 uiU/mL (0.358-3.740) Height (Feet): 5 Height (Inches): 3.00 Weight (Pounds): 246 Objective Vitals: reviewed General Appearance: NAD HEENT: normocephalic, atraumatic Neck: non-tender, normal alignment Respiratory/Chest: normal breath sounds bilaterally Cardiovascular/Chest: normal peripheral pulses, normal rate Abdomen: normal bowel sounds, soft, nontender Extremities: normal range of motion Margarito Jamison MD Feb 18, 2019 16:47
--- NOTE | 2019-02-18 19:19 | NUR ---
HAND-OFF: Report given to Vikki RN.
--- NOTE | 2019-02-18 19:20 | NUR ---
NURSE NOTES: RECEIVED PT FROM BETHANIE KAY AND BETHANIE CACERES. PT IS ASLEEP, ON ROOM AIR, NO ACUTE DISTRESS NOTED. IV ON LEFT WRIST 22G IS INTACT AND PATENT. BED IS LOCKED AT THE LOWEST POSITION, BED ALARMS ACTIVE, SIDE RAILS UP X2, AND CALL LIGHT IS WITHIN REACH. WILL CONTINUE TO MONITOR.
[2019-02-18 20:00] VITALS: BP 150/79
--- NOTE | 2019-02-18 22:12 | General Progress Note ---
Assessment/Plan Problem List: (1) Respiratory distress ICD Codes: R06.03 - Acute respiratory distress SNOMED: 144086073 (2) Pneumonia ICD Codes: J18.9 - Pneumonia, unspecified organism SNOMED: 605096478 Status: progressing Assessment/Plan: pna is better dc in am resp insuff responding to abx afebrile abx per id Subjective ROS Limited/Unobtainable: Yes Allergies: Coded Allergies: AMOXICILLIN (Verified Allergy, Unknown, 02/14/10) PENICILLINS (Verified Allergy, Unknown, 02/14/10) Uncoded Allergies: EGGS (Allergy, Unknown, 02/14/10) Objective Last 24 Hour Vital Signs Date Time Temp Pulse Resp B/P (MAP) Pulse Ox O2 Delivery O2 Flow Rate FiO2 02/18/19 16:00 99.2 66 18 141/62 (88) 98 02/18/19 12:00 98.0 70 18 161/74 (103) 98 02/18/19 11:47 161/79 02/18/19 11:44 156/66 02/18/19 09:14 70 156/66 02/18/19 09:06 156/66 02/18/19 09:00 Room Air 02/18/19 08:00 98.5 70 18 156/66 (96) 95 02/18/19 04:00 98.2 71 18 144/73 (96) 94 02/18/19 00:00 98.1 69 18 152/75 (100) Intake and Output 02/17/19 02/18/19 18:59 06:59 Intake Total 720 ml 240 ml Output Total 1 ml Balance 720 ml 239 ml Intake Oral 720 ml 240 ml Output Urine Total 1 ml # Voids 2 1 Laboratory Tests 02/18/19 04:46: White Blood Count 8.6, Red Blood Count 3.95L, Hemoglobin 11.3L, Hematocrit 32.9L , Mean Corpuscular Volume 83, Mean Corpuscular Hemoglobin 28.6, Mean Corpuscular Hemoglobin Concent 34.3, Red Cell Distribution Width 13.3, Platelet Count 247, Mean Platelet Volume 6.2L, Neutrophils (%) (Auto) 75.9H, Lymphocytes (%) (Auto) 16.5L, Monocytes (%) (Auto) 6.9, Eosinophils (%) (Auto) 0.2, Basophils (%) (Auto) 0.5 Height (Feet): 5 Height (Inches): 3.00 Weight (Pounds): 246 EENT: PERRL/EOMI Cardiovascular: normal rate Respiratory/Chest: lungs clear Abdomen: soft Garett Mccloud MD Feb 18, 2019 22:12
[2019-02-19] VITALS: BP 144/75
--- NOTE | 2019-02-19 01:30 | Progress Note ---
DATE: 02/15/2019 SUBJECTIVE: The patient is more awake less anxiety and able to answer the questions. No behavior issues. The patient is compliant with medications. MENTAL STATUS EVALUATION: The patient is alert and oriented times self, place, and situation. Mood is anxious. Affect is constricted. Congruent with mood. Thought process is linear. Thought content no suicidal or homicidal ideations. ASSESSMENT: 1. Anxiety disorder. 2. Cognitive impairment. PLAN: 1. We will continue with current medication. 2. No medication changes. 3. Provide the patient with reality orientation and supportive therapy. Analia Shaffer M.D. DR: Javier JOB#: [id number] CC:
[2019-02-19 04:00] VITALS: BP 150/78
[2019-02-19 04:58] LABS: BASOPHILS % (AUTO) 0.7 % (0.0-2.0); EOSINOPHILS % (AUTO) 0.2 % (0.0-3.0); HEMATOCRIT 33.2 % (37.0-47.0); HEMOGLOBIN 11.3 G/DL (12.0-16.0); LYMPHOCYTES % (AUTO) 20.7 % (20.0-45.0); MEAN CORPUSCULAR VOLUME 83 FL (80-99); MONOCYTES % (AUTO) 6.6 % (1.0-10.0); NEUTROPHILS % (AUTO) 71.9 % (45.0-75.0); PLATELET COUNT 240 K/UL (150-450); RED BLOOD COUNT 3.98 M/UL (4.20-5.40); RED CELL DISTRIBUTION WIDTH 13.4 % (11.6-14.8); WHITE BLOOD COUNT 8.6 K/UL (4.8-10.8)
[2019-02-19] MEDS: NovoLOG Insulin Flexpen SUBQ SCH (06:46)
--- NOTE | 2019-02-19 07:24 | NUR ---
NURSE NOTES: Received patient awake alert and oriented, sitting up comfortably in bed. IV site at left wrist, 22 gauge, saline lock. Bed at lowest level with 3 side rails up. Call light within reach. In no apparent distress at this time. Will continue to monitor.
--- NOTE | 2019-02-19 07:26 | NUR ---
HAND-OFF: Report given to BETHANIE AMBRIZ. Pt is in stable condition. Up in bed eating breakfast.
[2019-02-19 08:00] VITALS: BP 157/68
--- NOTE | 2019-02-19 08:39 | NUR ---
DISCHARGE DISPOSITION: PLEASE READ PATIENT TO BE DISCHARGED [facility] [address] [facility] [address] T: [phone]>>> CALL RN SUP FOR REPORT [facility] ETA 1030 S[address] CARIN WHALEY MADE AWARE OF THE DC [phone] TRANSFER REPORT TO BE PROVIDED
[2019-02-19] MEDS: metFORMIN 500mg tab ORAL SCH (08:43)
[2019-02-19] MEDS: Levofloxacin 750mg tab ORAL SCH (08:43)
[2019-02-19] MEDS: Losartan 50mg tab ORAL SCH (08:43)
[2019-02-19 08:44] VITALS: BP 150/78
[2019-02-19] MEDS: Flonase Nasal Inhaler 16gm NASAL SCH (08:52)
[2019-02-19] MEDS: Gabapentin 300 MG/6 ML Soln NG SCH (09:00)
--- NOTE | 2019-02-19 09:38 | Hematology/Onc Progress Note ---
Assessment/Plan Assessment/Plan ASSESSMENT AND RECOMMENDATIONS # Anemia of iron deficiency, with low ferritin level of 58 --> Anemia workup has been ordered, rule out gi bleed, has been reviewed --> No evidence of hemolysis is noted, peripheral smear has been reviewed. --> Hgb goal >7. Transfuse prn. --> HGB 11.3 --> Iron PO has been started --> Medications have been reviewed --> low threshold for gi evaluation in case has occult + --> as per gi recs # Bronchitis, may have a component of seasonal allergies. --> ID is following, appreciate recs. # DM. # Obesity. # Hypothyroidism. # Anxiety --> per psych recs The time note is entered does not necessarily reflects the time the patient was examined. Greatly appreciate consultation. Subjective Allergies: Coded Allergies: AMOXICILLIN (Verified Allergy, Unknown, 02/14/10) PENICILLINS (Verified Allergy, Unknown, 02/14/10) Uncoded Allergies: EGGS (Allergy, Unknown, 02/14/10) Subjective 02/17: No SOB or acute respiratory distress 02/18: remains anxious, no f/c, seen by psych and id, pcp 02/19: Dc planning, per CM potential discharge. Objective Objective Current Medications Medications (Trade) Dose Ordered Sig/Latasha Route PRN Reason Start Time Stop Time Status Last Admin Dose Admin Acetaminophen/ Hydrocodone Bitart ([place] 5/325) 1 tab Q6H PRN ORAL Severe Pain (Pain Scale 7-10) 02/15/19 15:00 02/22/19 14:59 02/17/19 08:59 Al Hydroxide/Mg Hydroxide (Mylanta) 30 ml Q4H PRN ORAL heartburn and upset stomach 02/18/19 14:45 03/20/19 14:44 Amlodipine Besylate (Norvasc) 5 mg DAILY ORAL 02/16/19 09:00 03/18/19 08:59 02/19/19 08:44 Clonidine HCl (Catapres Tab) 0.1 mg Q8H PRN ORAL For High Blood Pressure 02/15/19 15:00 03/17/19 14:59 02/18/19 11:47 Dextrose (Dextrose 50%) 25 ml Q30M PRN IV Hypoglycemia 02/15/19 14:30 03/17/19 14:29 Dextrose (Dextrose 50%) 50 ml Q30M PRN IV Hypoglycemia 02/15/19 14:30 03/17/19 14:29 Escitalopram Oxalate (Lexapro) 10 mg DAILY ORAL 02/17/19 09:00 03/19/19 08:59 02/19/19 08:44 Ferrous Sulfate (Feosol) 325 mg DAILY ORAL 02/16/19 09:00 03/18/19 08:59 02/19/19 08:43 Fluticasone Propionate (Flonase) 1 spray TWICE A DAY NASAL 02/15/19 18:00 03/17/19 17:59 02/19/19 08:52 Folic Acid (Folate) 1 mg DAILY ORAL 02/17/19 09:00 03/19/19 08:59 02/19/19 08:44 Gabapentin (Neurontin) 300 mg TID NG 02/15/19 18:00 03/17/19 17:59 02/18/19 17:18 Insulin Aspart (NovoLOG) BEFORE MEALS AND HS SUBQ 02/15/19 16:30 03/17/19 16:29 02/19/19 06:46 Levofloxacin (Levaquin) 750 mg Q48H ORAL 02/17/19 09:00 02/24/19 08:59 02/19/19 08:43 Lorazepam (Ativan) 1 mg Q4H PRN ORAL anxiety 02/16/19 16:28 02/23/19 16:27 Losartan Potassium (Cozaar) 50 mg DAILY ORAL 02/16/19 09:00 03/18/19 08:59 02/19/19 08:43 Magnesium Hydroxide (Mom) 30 ml HSPRN PRN ORAL Constipation 02/15/19 15:00 03/17/19 14:59 Metformin HCl (Glucophage) 500 mg BID ORAL 02/15/19 18:00 03/17/19 17:59 02/19/19 08:43 Risperidone (RisperDAL) 2 mg DAILY ORAL 02/17/19 09:00 03/19/19 08:59 02/19/19 08:43 Risperidone (RisperDAL) 3 mg QHS ORAL 02/15/19 21:00 03/17/19 20:59 02/18/19 21:02 Temazepam (Restoril) 15 mg HSPRN PRN ORAL Insomnia 6/10/19 23:30 02/22/19 23:29 02/15/19 23:56 Last 24 Hour Vital Signs Date Time Temp Pulse Resp B/P (MAP) Pulse Ox O2 Delivery O2 Flow Rate FiO2 02/19/19 08:44 54 150/78 02/19/19 08:43 150/78 02/19/19 04:00 97.7 54 20 150/78 (102) 93 02/19/19 00:00 97.0 63 20 144/75 (98) 95 02/18/19 21:00 Room Air 02/18/19 20:00 98.5 67 18 150/79 (102) 96 02/18/19 16:00 99.2 66 18 141/62 (88) 98 02/18/19 12:00 98.0 70 18 161/74 (103) 98 02/18/19 11:47 161/79 02/18/19 11:44 156/66 02/18/19 09:14 70 156/66 02/18/19 09:06 156/66 02/18/19 09:00 Room Air 02/18/19 08:00 98.5 70 18 156/66 (96) 95 02/18/19 04:00 98.2 71 18 144/73 (96) 94 02/18/19 00:00 98.1 69 18 152/75 (100) 02/17/19 21:00 Room Air 02/17/19 20:00 98.2 74 20 160/67 (98) 97 02/17/19 15:53 98.2 82 20 136/68 (90) 99 02/17/19 14:00 151/78 (102) 02/17/19 12:27 167/81 02/17/19 12:00 98.2 86 20 167/81 (109) 95 Intake and Output 02/18/19 02/19/19 19:00 07:00 Intake Total 890 ml 240 ml Output Total 2 ml Balance 890 ml 238 ml Intake Oral 890 ml 240 ml Output Urine Total 1 ml Stool Total 1 ml # Voids 4 Labs Test 02/16/19 18:30 02/17/19 05:12 02/18/19 04:46 02/19/19 04:50 White Blood Count 8.9 K/UL (4.8-10.8) 6.9 K/UL (4.8-10.8) 8.6 K/UL (4.8-10.8) 8.6 K/UL (4.8-10.8) Red Blood Count 3.84 M/UL (4.20-5.40) 3.94 M/UL (4.20-5.40) 3.95 M/UL (4.20-5.40) 3.98 M/UL (4.20-5.40) Hemoglobin 10.7 G/DL (12.0-16.0) 11.1 G/DL (12.0-16.0) 11.3 G/DL (12.0-16.0) 11.3 G/DL (12.0-16.0) Hematocrit 31.4 % (37.0-47.0) 32.8 % (37.0-47.0) 32.9 % (37.0-47.0) 33.2 % (37.0-47.0) Mean Corpuscular Volume 82 FL (80-99) 83 FL (80-99) 83 FL (80-99) 83 FL (80- 99) Mean Corpuscular Hemoglobin 27.9 PG (27.0-31.0) 28.2 PG (27.0-31.0) 28.6 PG (27.0-31.0) 28.4 PG (27.0-31.0) Mean Corpuscular Hemoglobin Concent 34.1 G/DL (32.0-36.0) 33.8 G/DL (32.0-36.0) 34.3 G/DL (32.0-36.0) 34.1 G/DL (32.0-36.0) Red Cell Distribution Width 13.2 % (11.6-14.8) 13.6 % (11.6-14.8) 13.3 % (11.6-14.8) 13.4 % (11.6-14.8) Platelet Count 251 K/UL (150-450) 247 K/UL (150-450) 247 K/UL (150-450) 240 K/UL (150-450) Mean Platelet Volume 6.2 FL (6.5-10.1) 6.5 FL (6.5-10.1) 6.2 FL (6.5-10.1) 6.3 FL (6.5-10.1) Neutrophils (%) (Auto) % (45.0-75.0) 68.3 % (45.0-75.0) 75.9 % (45.0-75.0) 71.9 % (45.0-75.0) Lymphocytes (%) (Auto) % (20.0-45.0) 23.2 % (20.0-45.0) 16.5 % (20.0-45.0) 20.7 % (20.0-45.0) Monocytes (%) (Auto) % (1.0-10.0) 7.7 % (1.0-10.0) 6.9 % (1.0-10.0) 6.6 % (1.0-10.0) Eosinophils (%) (Auto) % (0.0-3.0) 0.2 % (0.0-3.0) 0.2 % (0.0-3.0) 0.2 % (0.0-3.0) Basophils (%) (Auto) % (0.0-2.0) 0.6 % (0.0-2.0) 0.5 % (0.0-2.0) 0.7 % (0.0-2.0) Differential Total Cells Counted 100 Neutrophils % (Manual) 64 % (45-75) Lymphocytes % (Manual) 31 % (20-45) Monocytes % (Manual) 4 % (1-10) Eosinophils % (Manual) 1 % (0-3) Basophils % (Manual) 0 % (0-2) Band Neutrophils 0 % (0-8) Other Cell Type See comments Platelet Estimate Adequate Platelet Morphology Normal Red Blood Cell Morphology Normal Reticulocyte Count 1.2 % (0.5-2.0) Prothrombin Time 10.0 SEC (9.30-11.50) Prothromb Time International Ratio 0.9 (0.9-1.1) Iron Level 35 ug/dL (50-175) Total Iron Binding Capacity 250 ug/dL (250-450) Percent Iron Saturation 14 % (15-50) Unsaturated Iron Binding 215 ug/dL (112-346) Ferritin 58 NG/ML (8-388) Lactate Dehydrogenase 173 U/L (81-234) Carcinoembryonic Antigen 2.1 ng/mL (0.0-4.7) Vitamin B12 Level 848 PG/ML (193-986) Folate 7.4 NG/ML (8.6-58.9) Thyroid Stimulating Hormone (TSH) 3.677 uiU/mL (0.358-3.740) Height (Feet): 5 Height (Inches): 3.00 Weight (Pounds): 246 Objective Vitals: reviewed General Appearance: NAD HEENT: normocephalic, atraumatic Neck: non-tender, normal alignment Respiratory/Chest: normal breath sounds bilaterally Cardiovascular/Chest: normal peripheral pulses, normal rate Abdomen: normal bowel sounds, soft, nontender Extremities: normal range of motion Margarito Jamison MD Feb 19, 2019 09:38
--- NOTE | 2019-02-19 11:41 | Infectious Diseases Prog Note ---
Assessment/Plan Assessment/Plan IMPRESSION: Bronchitis, Positive blood culture with Staph hominis,likely contamination seasonal allergies. The DM. obesity hypothyroidism. VRE carrier RECOMMENDATIONS: Discontinue Levaquin. Agree with discharge Subjective ROS Limited/Unobtainable: Yes Constitutional: Reports: no symptoms Respiratory: Reports: no symptoms Gastrointestinal/Abdominal: Reports: no symptoms Genitourinary: Reports: no symptoms Allergies: Coded Allergies: AMOXICILLIN (Verified Allergy, Unknown, 02/14/10) PENICILLINS (Verified Allergy, Unknown, 02/14/10) Uncoded Allergies: EGGS (Allergy, Unknown, 02/14/10) Objective Vital Signs Last 24 Hour Vital Signs Date Time Temp Pulse Resp B/P (MAP) Pulse Ox O2 Delivery O2 Flow Rate FiO2 02/19/19 09:00 Room Air 02/19/19 08:44 54 150/78 02/19/19 08:43 150/78 02/19/19 08:00 97.6 76 18 157/68 (97) 94 02/19/19 04:00 97.7 54 20 150/78 (102) 93 02/19/19 00:00 97.0 63 20 144/75 (98) 95 02/18/19 21:00 Room Air 02/18/19 20:00 98.5 67 18 150/79 (102) 96 02/18/19 16:00 99.2 66 18 141/62 (88) 98 02/18/19 12:00 98.0 70 18 161/74 (103) 98 02/18/19 11:47 161/79 02/18/19 11:44 156/66 Height (Feet): 5 Height (Inches): 3.00 Weight (Pounds): 246 General Appearance: no acute distress HEENT: mucous membranes moist Respiratory/Chest: lungs clear Cardiovascular: bradycardia Abdomen: soft, non tender Extremities: no edema Neurologic/Psychiatric: alert, responsive Laboratory Tests Test 02/19/19 04:50 White Blood Count 8.6 K/UL (4.8-10.8) Red Blood Count 3.98 M/UL (4.20-5.40) L Hemoglobin 11.3 G/DL (12.0-16.0) L Hematocrit 33.2 % (37.0-47.0) L Mean Corpuscular Volume 83 FL (80-99) Mean Corpuscular Hemoglobin 28.4 PG (27.0-31.0) Mean Corpuscular Hemoglobin Concent 34.1 G/DL (32.0-36.0) Red Cell Distribution Width 13.4 % (11.6-14.8) Platelet Count 240 K/UL (150-450) Mean Platelet Volume 6.3 FL (6.5-10.1) L Neutrophils (%) (Auto) 71.9 % (45.0-75.0) Lymphocytes (%) (Auto) 20.7 % (20.0-45.0) Monocytes (%) (Auto) 6.6 % (1.0-10.0) Eosinophils (%) (Auto) 0.2 % (0.0-3.0) Basophils (%) (Auto) 0.7 % (0.0-2.0) Current Medications Medications (Trade) Dose Ordered Sig/Latasha Route PRN Reason Start Time Stop Time Status Last Admin Dose Admin Acetaminophen/ Hydrocodone Bitart ([place] 5/325) 1 tab Q6H PRN ORAL Severe Pain (Pain Scale 7-10) 02/15/19 15:00 02/22/19 14:59 02/17/19 08:59 Al Hydroxide/Mg Hydroxide (Mylanta) 30 ml Q4H PRN ORAL heartburn and upset stomach 02/18/19 14:45 03/20/19 14:44 Amlodipine Besylate (Norvasc) 5 mg DAILY ORAL 02/16/19 09:00 03/18/19 08:59 02/19/19 08:44 Clonidine HCl (Catapres Tab) 0.1 mg Q8H PRN ORAL For High Blood Pressure 02/15/19 15:00 03/17/19 14:59 02/18/19 11:47 Dextrose (Dextrose 50%) 25 ml Q30M PRN IV Hypoglycemia 02/15/19 14:30 03/17/19 14:29 Dextrose (Dextrose 50%) 50 ml Q30M PRN IV Hypoglycemia 02/15/19 14:30 03/17/19 14:29 Escitalopram Oxalate (Lexapro) 10 mg DAILY ORAL 02/17/19 09:00 03/19/19 08:59 02/19/19 08:44 Ferrous Sulfate (Feosol) 325 mg DAILY ORAL 02/16/19 09:00 03/18/19 08:59 02/19/19 08:43 Fluticasone Propionate (Flonase) 1 spray TWICE A DAY NASAL 02/15/19 18:00 03/17/19 17:59 02/19/19 08:52 Folic Acid (Folate) 1 mg DAILY ORAL 02/17/19 09:00 03/19/19 08:59 02/19/19 08:44 Gabapentin (Neurontin) 300 mg TID NG 02/15/19 18:00 03/17/19 17:59 02/18/19 17:18 Insulin Aspart (NovoLOG) BEFORE MEALS AND HS SUBQ 02/15/19 16:30 03/17/19 16:29 02/19/19 06:46 Levofloxacin (Levaquin) 750 mg Q48H ORAL 02/17/19 09:00 02/24/19 08:59 02/19/19 08:43 Lorazepam (Ativan) 1 mg Q4H PRN ORAL anxiety 02/16/19 16:28 02/23/19 16:27 Losartan Potassium (Cozaar) 50 mg DAILY ORAL 02/16/19 09:00 03/18/19 08:59 02/19/19 08:43 Magnesium Hydroxide (Mom) 30 ml HSPRN PRN ORAL Constipation 02/15/19 15:00 03/17/19 14:59 Metformin HCl (Glucophage) 500 mg BID ORAL 02/15/19 18:00 03/17/19 17:59 02/19/19 08:43 Risperidone (RisperDAL) 2 mg DAILY ORAL 02/17/19 09:00 03/19/19 08:59 02/19/19 08:43 Risperidone (RisperDAL) 3 mg QHS ORAL 02/15/19 21:00 03/17/19 20:59 02/18/19 21:02 Temazepam (Restoril) 15 mg HSPRN PRN ORAL Insomnia 02/15/19 23:30 02/22/19 23:29 02/15/19 23:56 Seth Waggoner MD Feb 19, 2019 11:41
--- NOTE | 2019-02-19 12:13 | NUR ---
NURSE NOTES: Patient discharged. IV and ID band removed. Belongings reconciled. Report given to [facility]. Escorted from facility by [facility] personnel without incident or injury.
--- NOTE | 2019-02-20 01:15 | Progress Note ---
DATE: 02/19/2019 SUBJECTIVE: The patient is presenting with anxiety, depressed mood, anhedonia, and low energy. engaged. MENTAL STATUS EXAMINATION: Alert and oriented x3. Mood is anxious. Affect is constricted. Congruent with mood. Thought process is linear. Thought content, no suicidal or homicidal ideations. ASSESSMENT: 1. Anxiety disorder. 2. Depression. PLAN: 1. We will continue current medications. 2. Provide the patient with reality orientation and supportive therapy. Analia Shaffer M.D. DR: PERLITA JOB#: [id number] CC:
--- NOTE | 2019-02-20 21:27 | Discharge Summary ---
Discharge Summary Discharge Summary _ DATE OF ADMISSION: 02/15/2019 DATE OF DISCHARGE: 02/19/2019 DISCHARGED BY: Dr Mccloud REASON FOR ADMISSION: 73 years old female with past medical history of diabetes mellitus, hypertension , resident of long-term facility, presented with complaint of cough, congestion, and fever. Patient was also short of breath. Upon evaluation blood pressure elevated 155/100. No fever. Pulse oximetry stable on room air. Laboratory work-up revealed no leukocytosis, hemoglobin 11.1, hematocrit 32.6 platelet count 238. Sodium 134. BUN 15, creatinine 1.1. Glucose 130. Troponin negative. Pro-BNP 339. Albumin 3.1. Stable LFT. Urinalysis revealed no evidence of UTI, +1 protein. EKG revealed normal sinus rhythm, no acute ischemic changes. Chest x-ray revealed no acute cardiopulmonary pathology. Patient admitted for further management. CONSULTANTS: ID specialist Dr. Dupont retail security professional/oncologist Dr. Jamison psychiatrist [facility]RSE: Patient admitted and started on empiric antibiotic as per ID specialist recommendation. Supplemental oxygen provided as needed to keep pulse oximetry above 92%. Pulmonary toilet with bronchodilator provided. Antitussive provided as needed. Blood culture revealed Staph hominis. Patient remained afebrile, no leukocytosis. Per infectious disease specialist, positive blood culture with staph hominis were probably contaminated. Patient likely had bronchitis, given no fever, no leukocytosis, and negative chest x-ray. Antibiotics were discontinued. Flonase nasal spray provided for seasonal allergy. Blood pressure was managed with Cozaar, clonidine and amlodipine. Blood pressure stabilized. Blood sugar was managed with metformin and sliding scale of insulin as needed. Hemoglobin and hematocrit were closely monitored with goal to keep hemoglobin above 7. Hemoglobin and hematocrit remained at baseline. Prior to discharge hemoglobin 11.3, hematocrit 33.2. Anemia work-up was consistent with anemia of iron deficiency. Ferritin level 58. Patient started on oral iron supplements. Anemia work-up also revealed folic acid deficiency. Patient started on folic acid replacement. No evidence of hemolysis. Low threshold for GI evaluation. CEA within normal limits, 2.1. Psychiatrist followed. Reality orientation and supportive therapy provided. Psychiatric medication regimen was optimized as per psychiatrist. Patient clinically stabilized and was ready for discharge back to long-term facility for continuation of care. FINAL DIAGNOSES: Bronchitis Respiratory distress Diabetes mellitus Hypertension Obesity with BMI 43.6 Anemia of iron deficiency Schizophrenia, chronic paranoid type Anxiety disorder Depression DISCHARGE MEDICATIONS: See Medication Reconciliation list. DISCHARGE INSTRUCTIONS: Patient was discharged to the long-term facility. Follow up with medical doctor at the facility. I have been assigned to dictate discharge summary for this account. I was not involved in the patient's management. Ting Alvarenga NP Feb 20, 2019 21:27
== END 2019-02-19 12:04 | DRG 202 ==
LOC: EDBD 10:26 → EMR 10:59 → 4E 11:09 → EDBEDREQ 11:33
DX: J20.9 Acute bronchitis, unspecified (principal); E87.1 Hypo-osmolality and hyponatremia; Z68.41 Body mass index [BMI] 40.0-44.9, adult; F20.0 Paranoid schizophrenia; R06.03 Acute respiratory distress; E66.9 Obesity, unspecified; E11.9 Type 2 diabetes mellitus without complications; I10 Essential (primary) hypertension; Z79.4 Long term (current) use of insulin; D50.9 Iron deficiency anemia, unspecified; F41.9 Anxiety disorder, unspecified; F32.9 Major depressive disorder, single episode, unspecified; E03.9 Hypothyroidism, unspecified; Z88.1 Allergy status to other antibiotic agents; Z88.0 Allergy status to penicillin; D63.8 Anemia in other chronic diseases classified elsewhere
CPT/HCPCS: 36415; 71045; 80053; 81003; 82378; 82553; 82607; 82728; 82746; 82962; 83540; 83550; 83615; 83690; 83880; 84443; 84484; 85007; 85025; 85044; 85060; 85610; 87040; 87081; 87181; 93005; 96365; 96368; 99285; J1815